=== PATIENT | female | born 1995 | race Caucasian/White ===

== ENCOUNTER 2024-02-16 17:34 | Inpatient (IN) | payer OTHER, SELFPAY ==
[2024-02-16 11:45] VITALS: BP 113/87
--- NOTE | 2024-02-16 12:54 | ED.GENMED ---
History of Present Illness
General
Chief Complaint: Dizziness
Source: patient and family
Exam Limitations: none
Time Seen by Provider: 02/16/24 12:05
Nursing documentation reviewed up to this point in time: agreed with
Travel History
Have you had any contact with someone who has COVID-19?: No
Do you have any symptoms of coronavirus? Fever > 100 degrees, chills, cough, shortness of breath, sore throat, loss of taste or smell, muscle aches, or headache?: No
History of Present Illness
History of Present Illness:
Patient is a 29-year-old female with history of gastroparesis, chronic anemia/iron deficiency anemia spontaneous colon rupture at age 20, ileostomy followed at [place] by GI Dr. Hill presents to the ER for evaluation. Patient has a PICC line to her
left arm and normally gives herself a liter and a half of fluids every other day to prevent dehydration. She reports she had what she thinks is a stomach bug last week and on Friday, 5 days ago she had a fever of 101 and she had projectile
vomiting. She also had a significant high output of stool through her ileostomy. She has not had a fever since Friday and her output has decreased but she complains of feeling very weak and very lightheaded and is nauseous. She has had a mild
headache. Last night she started with some burning with urination and is afraid she has UTI. She does have a history of urinary retention and did have this issue as well yesterday. She has been able to hold down some fluids and soup. She denies
any abdominal pain.
As documented patient has a history of anemia and her last hemoglobin was 10.9 at [place] December 29, 2023. She does get intermittent iron transfusions.
Past History
Past History
ED Past Medical History: Psychiatric (anxietym OCD), Other (Peptic ulcer disease, hemochromatosis, volvulus, psoriasis, IBS, Anemia, Ulcers) and Other
ED Past Surgical History: Other (coloectomy and multiple iliostomy revisions X 5, Bilateral occipital nerve disection)
Social History
Tobacco: Non-smoker
Alcohol: Occasional
Personal: Single
Living: with family
Employment: Employed
Review of Systems
Review of Systems
Allergies reviewed?: Yes
Other source history: family
All Other Systems: ROS reviewed and negative except as documented in HPI and ROS
Constitutional: Reports fatigue and other (fever last week no fever since Friday )
EENT: Reports no symptoms
Respiratory: Reports no symptoms
Cardiac: Reports no symptoms
ABD/GI: Reports nausea and other (Increased output through ileostomy last week this has improved vomiting last week no vomiting since); Denies abdominal pain
: Reports other (Patient had urinary retention last night and some burning)
Musculoskeletal: Reports no symptoms
Skin: Reports no symptoms
Neurological: Reports dizzy ('feels lightheaded' )
Psychiatric: Reports no symptoms
Phy Exam
General Physical Exam
General Presentation: no apparent distress
General age: appears stated age
General Skin: warm and dry
General Habitus: normal
General Mental: alert
General Hydration: dry mucous membranes
Gastrointestinal Exam
Gastrointestinal Exam: non tender, soft and other (+ Ileostomy in place small stool in the bag)
Neurological Exam
Neurological Exam: alert and oriented x3
Musculoskeletal Exam
Musculoskeletal Exam: full ROM
Skin Exam
Skin Exam: normal color and warm/dry
Psychiatric Exam
Psychiatric Exam: normal mood/affect
Course
Orders/Labs/Results
Orders:
Orders
02/16/24 12:56
Cardiac Monitoring- Treatment ONCE
IV Insert/Care/Rem.- Treatment PRN
0.9% Sodium Chloride 1000 ml [Nss] 1,000 ml IV BOLUS
Ondansetron Injectable [Zofran] 4 mg IV NOW STA
Test Result ONCE
02/16/24 13:15
Chest [CR Chest - 2 Views ] Urgent
Comment:
Reason For Exam: left arm piccl line placement
02/16/24 13:19
Complete Blood Count/With Diff Urgent
Comprehensive Metabolic Panel Urgent
HCG, Serum Qualitative Screen Urgent
Lipase Urgent
Urinalysis Reflex To Culture Urgent
Date Specimen was Collected: 02/16/24
Time Specimen was Collected: 13:18
Urine Microscopic Reflex Cult Urgent
Urine Culture Urgent
ALBINA Source: U
Specimen Description:
Obtained by: Random
Date Specimen was Collected: 02/16/24
Time Specimen was Collected: 13:18
02/16/24 Dinner
NPO
Allow oral meds: Yes
Allow clear liquids: Sips of Clears
02/16/24 16:31
Promethazine [Phenergan] 25 mg 0.9% Sodium Chloride 50 ml [Nss] 50 ml IV NOW
02/16/24 16:41
Acetaminophen 1000MG/100Ml [Ofirmev] 1,000 mg in 100 ml IV ONCE
Acetaminophen IV Indication:: ED Narcotic Naive Pt-ONCE
02/16/24 16:43
Lactated Ringers [Lr] 1,000 ml IV BOLUS
02/16/24 16:44
Promethazine [Phenergan] 12.5 mg 0.9% Sodium Chloride 50 ml [Nss] 50 ml IV NOW
02/16/24 16:48
CefTRIAXone [Rocephin] 1,000 mg IV NOW STA
02/16/24 17:14
Admit/Transfer Patient As Directed
Co-Sign Provider:
Level of Care: Inpatient admission
Assign to:: Medical/Surgical
Physician / Group: [email or web address]
Diagnosis: gastroenteritis
Reason for Hospitalization: gastroenteritis
Expected length of stay greater than two midnights?: Yes
ELOS- Estimated Length of Stay in days: 2
I certify the patient meets the requirements for IP care: Yes
02/16/24 17:16
Code Status As Directed
Resuscitation Status: Full Code
02/16/24 17:22
C difficile Antigen & Toxins Urgent
ALBINA Source: Feces/Stool
Specimen Description:
Date Specimen was Collected: 02/17/24
Time Specimen was Collected: 02:50
Norovirus by PCR Urgent
ALBINA Source: Feces/Stool
Specimen Description:
Date Specimen was Collected: 02/17/24
Time Specimen was Collected: 02:50
Stool Culture Urgent
ALBINA Source: Feces/Stool
Specimen Description:
Date Specimen was Collected: 02/17/24
Time Specimen was Collected: 02:50
02/16/24 19:33
0.9% Sodium Chloride 1000 ml [Nss] 1,000 ml IV 100 mls/hr
Promethazine [Phenergan] 12.5 mg 0.9% Sodium Chloride 50 ml [Nss] 50 ml IV Q4HPRN
sumatriptan succinate 6 mg SC DAILYPRN PRN
02/16/24 19:33
Activity As Directed
Activity Level: As Tolerated
Bladder Scan As Directed
Follow Bladder Retention/Intermittent Cath Algorithm?: Yes
PRN if no void in __ hours: 6
Frequency: Per Retention Algorithm
If Bladder Scan Result >: 400
then:: Straight cath
Straight Cath As Directed
Frequency: Per Retention Algorithm
Additional Instructions: straight cath as needed per acute urinary retention algorithm for 24 hrs
Additional Instructions: for bladder scan greater than 400 mL
Vital Signs As Directed
Frequency: Per unit guidelines
DX Deep Vein Thrombosis Video Routine
02/16/24 20:00
Heparin 5,000 units SC Q12
Pantoprazole [Protonix] 40 mg PO BID
02/16/24 20:01
B12 [Vitamin B12] Routine
Ferritin Routine
Folate Routine
Iron Routine
TIBC [Total Iron Binding] Routine
Blood Culture Q30M
ALBINA Source: Blood/Venous
Specimen Description:
02/16/24 20:09
Sumatriptan Succinate [Imitrex] 100 mg PO PRN PRN
02/16/24 21:02
Blood Culture Q30M
ALBINA Source: Blood/Venous
Specimen Description:
02/17/24 07:41
Complete Blood Count/With Diff IN AM
Comprehensive Metabolic Panel IN AM
02/17/24 20:00
CefTRIAXone [Rocephin] 1,000 mg IV Q24H
Abnormal Lab Results
02/16/24
13:19
RBC 3.68 L 10^6/uL
(4.20-5.40)
Hgb 8.6 L g/dL
(12.0-16.0)
Hct 27.2 L %
(37.0-47.0)
MCV 73.9 L fL
(81.0-99.0)
MCH 23.4 L pg
(27.0-31.0)
MCHC 31.6 L g/dL
(33.0-37.0)
RDW 16.2 H %
(11.5-14.5)
MPV 10.9 H fL
(7.4-10.4)
Sodium 131 L mmol/L
(135-145)
Carbon Dioxide 19 L mmol/L
(22-30)
BUN 28 H mg/dl
(7-17)
Creatinine 0.5 L mg/dL
(0.6-1.0)
Urine Nitrite (Reflex) Positive A
(Negative)
Urine Bilirubin 1+ A
(Negative)
Urine WBC (Reflex) 11-15 A /HPF
(0-5)
Urine Bacteria (Reflex) Few A
(Negative)
02/16/24 13:19
02/16/24 13:19
Vital Signs
Initial and Last Documented VS:
Initial Vital Signs
Temp Pulse Resp BP Pulse Ox
98.5 F 100 18 113/87 100
02/16/24 11:45 02/16/24 11:45 02/16/24 11:45 02/16/24 11:45 02/16/24 11:45
Last Documented Vital Signs
Temp Pulse Resp BP Pulse Ox
97.8 F 81 16 109/76 96
02/17/24 23:30 02/17/24 23:30 02/17/24 23:30 02/17/24 23:30 02/17/24 23:30
MDM/Problems Addressed
Differential Diagnosis Includes:
Not limited to dehydration anemia UTI, recent viral syndrome
MDM/Problems Addressed:
Patient is a 29-year-old female with significant past medical history as documented with ileostomy presents with complaints of feeling very weak lightheaded dizzy. Patient had what she believes was a stomach bug last week and had vomiting and has
had a lot of output through her ileostomy. She is followed at [place]. Patient appears dehydrated on exam denies any recent fever chills. She was hydrated here given nausea medicine and fluids but continues to feel lightheaded dizzy nonvertiginous.
Patient is afebrile with a normal white count of 6.2 hemoglobin low at 8.6 which is low from her last blood test at [place] as documented. She does have history of anemia/iron deficiency anemia patient has normal kidney function. Abdomen soft and
nontender. Despite fluids antiemetics patient continues to feel lightheaded patient also has UTI symptoms and UA with positive nitrates 11�15 white blood cells will treat for UTI and admit. Case discussed admitting hospitalist
Chronic conditions affecting care:
chronic ileostomy
*Radiology
Radiology exam reviewed: radiology read reviewed (chest to confirm PICC Line in place )
*Pulse Oximetry
Patient hypoxic: no
*Critical Care Note
Total Time (30-74mins, 75-104mins- exclusive of procedures): Not Applicable
ED Attending Note
-
Portions of this chart may have been created with voice recognition software.� Occasional wrong word or��sound alike� substitutions may have occurred due to the inherent limitations of voice recognition software.
Discharge Plan
Departure
Patient Disposition: Admit
Date of Disposition: 02/16/24
Time of Disposition: 16:49
Admit to: Med/Surg
Admit to doctor: hospitalist
Presentation/result/management discussed w/ accepting MD/DO: Hospitalist
Patient with high blood pressure during this ER visit?: No
Covid-19: Not Applicable
Discharge Problem:
Lightheadedness, Anemia, UTI (urinary tract infection), Acute dehydration
Interventions
Interventions:
*Risk Screen - Suicide Last Done: 02/16/24 19:40
*General Assessment Last Done: 02/16/24 11:45
*Neglect/Abuse Screening Last Done: 02/16/24 11:45
ED- Fall Risk Assessment Last Done: 02/16/24 12:56
*ED COVID-19 Vaccine History Last Done: 02/16/24 11:45
*Nursing Disposition Last Done: 02/16/24 19:30
ED- Neurological Assessment Last Done: 02/16/24 12:56
ED Swallowing Screen Last Done: 02/16/24 12:56
Discharge Date and Time
Discharge Date/Time: 02/16/24 19:31
[2024-02-16 13:37] LABS: % Basophils 0.3 % (0-2); % Eosinophils 1.6 % (0-6); % Immature Granulocytes 0.3 % (0-0.5); % Lymphocytes 28.2 % (20.5-51.1); % Monocytes 7.3 % (1.7-9.3); % Neutrophils 62.3 % (42.2-75.2); Absolute Eosinophils 0.1 10^3/uL (0-0.7); Absolute Lymphocytes 1.7 10^3/uL (1.2-3.4); Absolute Monocytes 0.5 10^3/uL (0.1-0.6); Absolute Neutrophils 3.8 10^3/uL (1.4-6.5); Hematocrit 27.2 % (37.0-47.0); Hemoglobin 8.6 g/dL (12.0-16.0); Mean Corp Hgb Conc. 31.6 g/dL (33.0-37.0); Mean Corpuscular Hgb 23.4 pg (27.0-31.0); Mean Corpuscular Volume 73.9 fL (81.0-99.0); Mean Platelet Volume 10.9 fL (7.4-10.4); Nucleated Red Blood Cells % 0 %; Platelet Count 217 10^3/uL (130-400); Red Blood Cell Count 3.68 10^6/uL (4.20-5.40); Red Cell Dist. Width 16.2 % (11.5-14.5); White Blood Cell Count 6.2 10^3/uL (4.8-10.8)
[2024-02-16 13:40] LABS: Urine Albumin Negative (Neg - Trace); Urine Bilirubin 1+ (Negative); Urine Character Clear (Clear); Urine Color Yellow; Urine Glucose Negative (Negative); Urine Ketone Negative (Negative); Urine Leukocyte Negative (Negative); Urine Nitrite Positive (Negative); Urine Occult Blood Negative (Negative); Urine Urobilinogen Negative (Neg - 1+)
[2024-02-16 13:49] LABS: Urine Bacteria Few (Negative); Urine Red Blood Cell 0-2 /HPF (0-2)
[2024-02-16 13:51] LABS: HCG, Serum Qualitative Screen Negative
[2024-02-16 13:56] VITALS: BP 103/70
[2024-02-16 13:58] LABS: ALT (SGPT) 27 U/L (0-35); AST (SGOT) 32 U/L (14-36); Albumin 4.1 g/dl (3.5-5.0); Alkaline Phosphatase 71 U/L (38-126); Blood Urea Nitrogen 28 mg/dl (7-17); Calcium 9.1 mg/dl (8.4-10.2); Carbon Dioxide 19 mmol/L (22-30); Chloride 106 mmol/L (98-107); Glucose 90 mg/dl (70-99); Potassium 4.5 mmol/L (3.5-5.1); Sodium 131 mmol/L (135-145); Total Bilirubin 0.2 mg/dl (0.2-1.3); Total Protein 6.6 g/dl (6.3-8.2); eGFR > 60.00
[2024-02-16] MEDS: ZOFRAN 4 MG IV (14:35)
[2024-02-16] MEDS: NSS 1000 IV ×2 (14:35→22:30)
[2024-02-16 14:55] LABS: Lipase 147 U/L (23-300)
--- NOTE | 2024-02-16 17:26 | HPS.HSE ---
Family Physician
-
Family Physician: * NONE
Chief Complaint
-
dizziness
History of Present Illness
29-year-old female with past medical history of spontaneous colon rupture at age 20 status post ileostomy, multiple ileostomy revisions,, high output ileostomy, gastroparesis, gastritis, chronic anemia/iron deficiency anemia, migraines status post
occipital nerve resection, psoriatic arthritis, chronic back pain, presenting with dizziness.
Patient thinks that she had a stomach bug last week 5 days ago she had fever of 101 and projectile vomiting. She also had a high output stool through the ileostomy that is watery. She states that since then she has not had fever and a few days ago
her output is decreased but she feels very weak, lightheaded and nauseous. She has mild headache. She denies eating any outside food or sick contacts.
Since last night she has had burning with urination as well as urinary retention. Patient denies abdominal pain.
Patient has a left upper extremity PICC line and normally gives herself a liter and a half of IV fluids every other day to prevent dehydration. She has a history of anemia and her last hemoglobin was 10.9 at [place] on December 29, 2023. She does
receive intermittent iron transfusions which she last received a year ago. She denies any blood in the stool or black stool. She last had an EGD 2 years ago which did not show any evidence of bleeding.
Denies smoking, alcohol, marijuana or any drugs.
Medical History
Past Medical History
Past Medical History: Reports Other (spontaneous colon rupture at age 20 status post ileostomy, multiple ileostomy revisions,, high output ileostomy, gastroparesis, gastritis, chronic anemia/iron deficiency anemia, migraines status post occipital
nerve resection, psoriatic arthritis, chronic back pain)
Past Surgical History: Reports Other (ileostomy, multiple ileostomy revisions, occipital nerve resection)
Social History
Tobacco: Non-smoker
Alcohol: None
Drug: None
Family History
Family History: Not pertinent
Allergies / Home Medications
Allergies reflects when Allergies were last updated in [email or web address].
Home Medications with original date entered in [email or web address]
Allergy/Medication List:
Allergies
Allergy/AdvReac Type Severity Reaction Status Date / Time
latex Allergy Itching Verified 02/16/24 11:48
prednisone Allergy Unknown Verified 02/16/24 11:48
Home Medications
lansoprazole 30 mg capsule,delayed release 30 mg PO BID 12/29/22
promethazine 12.5 mg tablet 25 mg PO Q6H PRN nausea 12/29/22
sumatriptan succinate 100 mg tablet (Imitrex) 250 mg PO PRN PRN migraines 12/29/22
tramadol 50 mg tablet 50 mg PO Q6H PRN breakthrough pain 12/29/22
Heparin 5 ml IV HS 02/16/24
folic acid 1 ml PO BID 02/16/24
rimegepant 75 mg disintegrating tablet (Nurtec ODT) 75 mg PO DAILY PRN intense migraine 02/16/24
sodium chloride 0.9 % 1.5 l IV Q48H 02/16/24
sodium chloride 0.9 % (flush) 10 ml IV HS 02/16/24
sumatriptan succinate 6 mg/0.5 mL subcutaneous pen injector 6 mg SC DAILY PRN intense migraine 02/16/24
Review of Systems
-
History Source: Patient
A 12 point ROS was completed and negative except as noted: Yes
Constitutional: Reports No Symptoms
EENT: Reports No Symptoms
Respiratory: Reports No Symptoms
Cardiac: Reports No Symptoms
Abdomen/GI: Reports See HPI
: Reports No Symptoms
Musculoskeletal: Reports No Symptoms
Skin: Reports No Symptoms
Neurological: Reports No Symptoms
Endocrine: Reports No Symptoms
Hematologic/Lymphatic: Reports No Symptoms
Psych: Reports No Symptoms
Physical Exam
Vital Signs
Vital Signs
Temp Pulse Resp BP Pulse Ox
98.5 F 96 17 103/70 98
02/16/24 11:45 02/16/24 13:56 02/16/24 13:56 02/16/24 13:56 02/16/24 13:56
Physical Exam
General: Well Developed, Well Nourished and No Apparent Distress
HEENT: NormoCephalic, Moist mucous membranes and Atraumatic
Respiratory: Clear
Cardiac: S1/S2 and Regular Rhythm; No Murmur or Rub
GI: Soft, Non Tender, Non Distended and Normal Bowel Sounds; No Organomegaly
Rectal: Deferred by Provider
Musculoskeletal: No Clubbing, No Cyanosis and No Edema
Skin: No Rash
Neuro: Nonfocal/grossly intact
Laboratory Results
-
02/16/24 13:19
02/16/24 13:19
Laboratory Results
Total Bilirubin 0.2 mg/dl (0.2-1.3) 02/16/24 13:19
AST 32 U/L (14-36) 02/16/24 13:19
ALT 27 U/L (0-35) 02/16/24 13:19
Alkaline Phosphatase 71 U/L (38-126) 02/16/24 13:19
Lipase 147 U/L (23-300) 02/16/24 13:19
Data Reviewed
-
Lab Data: Labs Reviewed by me
Old Records: Reviewed
Impression/Plan
-
IMPRESSION:
PLAN:
# Urinary tract infection
# Possible urinary retention
-UA shows 11-15 WBC, positive nitrates
-IV fluids
-Check urine culture
-Check blood cultures
-Ceftriaxone
-Bladder scan protocol
# Likely viral gastroenteritis
# History of high output ileostomy
-NPO
-Check norovirus, stool culture, C. difficile
# History of spontaneous colon rupture status post ileostomy
# History of gastroparesis
-IV promethazine PRN
History of gastritis
-Continue lansoprazole
# Acute on chronic microcytic anemia likely due to iron malabsorption
-Hemoglobin 8.6 from 10.9 last month
-Check iron studies, B12 and folate
History of folate deficiency
Migraine history status post vestibular nerve resection
-Continue sumatriptan as needed
-Continue Nurtec
Psoriatic arthritis
Chronic back pain
-Switch tramadol to IV Dilaudid
Full code
DVT prophylaxis�heparin
NPO
[2024-02-16] MEDS: PHENERGAN 50.5 MG IV (17:49)
[2024-02-16 18:35] VITALS: BP 99/65
[2024-02-16] MEDS: ROCEPHIN 1000 MG IV (19:12)
[2024-02-16] MEDS: LR 1000 IV (19:13)
[2024-02-16] MEDS: OFIRMEV 100 IV (19:13)
[2024-02-16 20:15] VITALS: BP 106/55
--- NOTE | 2024-02-16 20:15 | PTCARENOTE ---
Patient arrived from ED via stretcher, ambulated from stretcher to bed independently. Patient is awake, alert and oriented. Ileostomy present, patient states she has own supplies to use. Awaiting stool sample to send for testing -- patient is aware
and will obtain sample when able. Call mackay within reach, will ring for assistance if needed. Will monitor.
[2024-02-16 20:22] LABS: Iron 44 ug/dl (37-170)
[2024-02-16 20:31] LABS: Percent Saturation 10 % (20-50); Total Iron Binding Capacity 433 ug/dl (265-497)
--- NOTE | 2024-02-16 20:45 | PTCARENOTE ---
Pt's suicide risk resulted as Mild Risk.Pt denies suicidal/homicidal ideations at present.Pt stated ,I attempted to hurt my self 6 months ago and had 2 hospitalizations but not having any of those feelings recently or at present.@2030; Instructed
VASQUEZ Sebastian via TT and car supervisor Deborah via phone call,on above note.Pt is oriented x3,pleasant and is cooperative with her nursing care.Pt is takes care of her own ileostomy and has her own supplies.
[2024-02-16 20:59] LABS: Ferritin 6.2 ng/ml (6.24-137)
[2024-02-16 21:30] LABS: Folate 2.3 ng/ml (2.76-20); Vitamin B12 848 pg/ml (239-931)
[2024-02-16 22:46] VITALS: BP 107/53
[2024-02-16] MEDS: HEPARIN 5000 UNITS SC (23:04)
[2024-02-16] MEDS: PROTONIX 40 MG PO (23:04)
[2024-02-17] VITALS (8 sets, daily range): BP systolic 95–109; BP diastolic 53–76
--- NOTE | 2024-02-17 07:41 | W.PN.HOSP.TC ---
Today's Communication/Plan
-
Will try and place on diet today
Continue IV hydration awaiting chemistries today
IV iron infusion
IV folate
Recheck labs in a.m. if tolerating diet and stable chemistries okay for discharge
Assessment / Plan
Assessment / Plan
29-year-old female with past medical history of spontaneous colon rupture at age 20 status post ileostomy, multiple ileostomy revisions,, high output ileostomy, gastroparesis, gastritis, chronic anemia/iron deficiency anemia, migraines status post
occipital nerve resection, psoriatic arthritis, chronic back pain, presenting with dizziness.
Patient thinks that she had a stomach bug last week 5 days ago she had fever of 101 and projectile vomiting. She also had a high output stool through the ileostomy that is watery. She states that since then she has not had fever and a few days ago
her output is decreased but she feels very weak, lightheaded and nauseous. She has mild headache. She denies eating any outside food or sick contacts.
Since last night she has had burning with urination as well as urinary retention. Patient denies abdominal pain.
Patient has a left upper extremity PICC line and normally gives herself a liter and a half of IV fluids every other day to prevent dehydration. She has a history of anemia and her last hemoglobin was 10.9 at [place] on December 29, 2023. She does
receive intermittent iron transfusions which she last received a year ago. She denies any blood in the stool or black stool. She last had an EGD 2 years ago which did not show any evidence of bleeding.
Denies smoking, alcohol, marijuana or any drugs.
# Urinary tract infection
# Possible urinary retention
-UA shows 11-15 WBC, positive nitrates
-IV fluids
-Check urine culture
-Check blood cultures
-Ceftriaxone
-Bladder scan protocol
# Likely viral gastroenteritis
# History of high output ileostomy
-NPO>> okay for low-residue diet today/notes no obstructive symptoms
-Check norovirus, stool culture, C. difficile
# History of spontaneous colon rupture status post ileostomy
# History of gastroparesis
-IV promethazine PRN
History of gastritis
-Continue lansoprazole
# Acute on chronic microcytic anemia likely due to iron malabsorption
-Hemoglobin 8.6 from 10.9 last month
-Low iron saturation and ferritin/low folate B12 within normal limits
-IV iron infusion while here/IV folate
History of folate deficiency
Migraine history status post vestibular nerve resection
-Continue sumatriptan as needed
-Continue Nurtec
Psoriatic arthritis
Chronic back pain
-Switch tramadol to IV Dilaudid
Full code
DVT prophylaxis�heparin
Anticipated Discharge: Within 24 hours
Subjective/Interval History
-
Date of Service: February 17, 2024
Feeling somewhat better after IV fluids overnight and wants to eat for some reason was made n.p.o. no nausea or vomiting and adequate ileostomy output
Objective Data
-
Labs:
Laboratory Results
02/17/24
06:00
WBC Pending
Hgb Pending
Hct Pending
Plt Count Pending
Sodium Pending
Potassium Pending
Chloride Pending
Carbon Dioxide Pending
BUN Pending
Creatinine Pending
Glucose Pending
Calcium Pending
Total Bilirubin Pending
AST Pending
ALT Pending
Alkaline Phosphatase Pending
Vital Signs:
Vital Signs
Temp Pulse Resp BP Pulse Ox
98.9 F 67 16 107/53 100
02/16/24 22:46 02/16/24 22:46 02/16/24 22:46 02/16/24 22:46 02/17/24 05:16
I&O
02/16/24 02/17/24 02/18/24
06:59 06:59 06:59
Intake Total 2379 / 2379
Balance 2379
Review of Systems
-
History Source: Patient
Constitutional: Reports Weakness; Denies Fever
Respiratory: Reports No Symptoms
Cardiac: Reports No Symptoms
Abdomen/GI: Reports Diarrhea; Denies Abdominal Pain, Nausea or Vomiting
Physical Exam
-
General: Well Developed (Appears pale)
HEENT: Normocephalic
Respiratory: Clear to Auscultation
Cardiac: Regular Rhythm
GI: Soft, Nontender and Ostomy (Ileostomy intact with good output)
Rectal: Brown
Musculoskeletal: No Clubbing
Psych: Calm
Data Reviewed
-
Total Time Spent with Patient (in minutes): 56
Labs: Labs Reviewed by me (Urinalysis was not that impressive for bacteria although did show positive nitrates/today's chemistries pending/iron deficiency noted along with folate deficiency)
[2024-02-17] MEDS: HEPARIN 5000 UNITS SC (07:46)
[2024-02-17] MEDS: PROTONIX 40 MG PO ×2 (07:46→20:53)
[2024-02-17 08:02] LABS: % Basophils 0.3 % (0-2); % Eosinophils 2.7 % (0-6); % Immature Granulocytes 0.6 % (0-0.5); % Lymphocytes 45.5 % (20.5-51.1); % Monocytes 7.5 % (1.7-9.3); % Neutrophils 43.4 % (42.2-75.2); Absolute Eosinophils 0.1 10^3/uL (0-0.7); Absolute Lymphocytes 1.5 10^3/uL (1.2-3.4); Absolute Monocytes 0.3 10^3/uL (0.1-0.6); Absolute Neutrophils 1.4 10^3/uL (1.4-6.5); Mean Corp Hgb Conc. 30.7 g/dL (33.0-37.0); Mean Corpuscular Volume 75.1 fL (81.0-99.0); Nucleated Red Blood Cells % 0 %; Platelet Count 145 10^3/uL (130-400); Red Blood Cell Count 2.65 10^6/uL (4.20-5.40); Red Cell Dist. Width 16.1 % (11.5-14.5); White Blood Cell Count 3.3 10^3/uL (4.8-10.8)
[2024-02-17 08:13] LABS: Hematocrit 19.9 % (37.0-47.0); Hemoglobin 6.1 g/dL (12.0-16.0)
--- NOTE | 2024-02-17 08:20 | W.PN.UPDATE ---
Update Note
Progress Note Update
Hemoglobin depressed to 6.1 no active bleeding seen and partly dilutional but also in relation to significant iron deficiency anemia folate deficiency will transfuse 2 units of packed red blood cells today continue iron infusions as ordered consent
signed by patient
[2024-02-17] MEDS: NSS 1000 IV (08:25)
[2024-02-17 08:32] LABS: ALT (SGPT) 17 U/L (0-35); AST (SGOT) 23 U/L (14-36); Albumin 2.5 g/dl (3.5-5.0); Alkaline Phosphatase 49 U/L (38-126); Blood Urea Nitrogen 17 mg/dl (7-17); Calcium 7.8 mg/dl (8.4-10.2); Carbon Dioxide 23 mmol/L (22-30); Chloride 109 mmol/L (98-107); Estimated Creatinine Clearance 100 ml/min; Glucose 82 mg/dl (70-99); Potassium 3.7 mmol/L (3.5-5.1); Sodium 134 mmol/L (135-145); Total Bilirubin 0.3 mg/dl (0.2-1.3); Total Protein 4.7 g/dl (6.3-8.2); eGFR > 60.00
[2024-02-17] MEDS: FOLVITE 50.2000000000000028 MG IV (09:10)
[2024-02-17] MEDS: NSS IV (15:17)
[2024-02-17] MEDS: FERRLECIT 110 MG IV (15:46)
--- NOTE | 2024-02-17 16:27 | CM ---
Spoke with patient to obtain information for assessment. Patient stated that she lives in an apartment in [place] by herself. She is independent with her ADLs, personal care, dressing, bathing and ambulates without device.
Patient can cook, clean, do laundry and captain assistant. She does not drive however she takes public transportation, Uber or Lyft to work, to the store and to her providers office.
Patient denied any DME with exception of her PICC. She uses [facility] and does have a weekly VN change her dressing however patient does the rest of the care including the infusions.
Patient has never been to a SNF. She was asked about her SI and denies any at this time but did admit to some history of SI months ago. She stated that she is feeling better now.
Patient feels that she will be able to return home at discharge and her mother who lives in [place] will transport her.
Plan: Case management will continue to follow and assist with discharge planning. Home when stable. Patient confirmed that her VN knows she is inpatient.
[2024-02-17] MEDS: HEPARIN SC ×2 (20:53→21:02)
[2024-02-17] MEDS: STERILE WATER FOR INJECTION 10 ML IV (20:53)
[2024-02-17] MEDS: ROCEPHIN 1000 MG IV (20:53)
[2024-02-17] MEDS: IMITREX 100 MG PO (21:07)
[2024-02-17] MEDS: PHENERGAN 50.5 MG IV (21:25)
[2024-02-18] MEDS: NSS 1000 IV (01:27)
[2024-02-18] MEDS: IMITREX 6 MG SC (01:46)
[2024-02-18 04:39] LABS: Hematocrit 26.5 % (37.0-47.0); Mean Corp Hgb Conc. 32.5 g/dL (33.0-37.0); Mean Corpuscular Hgb 25.7 pg (27.0-31.0); Mean Corpuscular Volume 79.1 fL (81.0-99.0); Mean Platelet Volume 11.5 fL (7.4-10.4); Platelet Count 157 10^3/uL (130-400); Red Blood Cell Count 3.35 10^6/uL (4.20-5.40); Red Cell Dist. Width 17.1 % (11.5-14.5); White Blood Cell Count 6.2 10^3/uL (4.8-10.8)
[2024-02-18 04:50] LABS: Hemoglobin 8.6 g/dL (12.0-16.0)
[2024-02-18 05:07] LABS: Blood Urea Nitrogen 12 mg/dl (7-17); Calcium 7.9 mg/dl (8.4-10.2); Carbon Dioxide 25 mmol/L (22-30); Chloride 107 mmol/L (98-107); Estimated Creatinine Clearance 100 ml/min; Glucose 101 mg/dl (70-99); Potassium 3.4 mmol/L (3.5-5.1); Sodium 136 mmol/L (135-145); eGFR > 60.00
[2024-02-18] MEDS: IMITREX 100 MG PO (06:30)
[2024-02-18] MEDS: FOLVITE 50.2000000000000028 MG IV (07:24)
[2024-02-18] MEDS: HEPARIN SC (07:24)
[2024-02-18] MEDS: PROTONIX 40 MG PO (07:25)
[2024-02-18 07:30] VITALS: BP 101/56
--- NOTE | 2024-02-18 07:57 | W.DS.TRANS ---
DC Summary - Yarn Examiner
-
Discharge Instructions:
Discharge Diagnosis/Procedures Acute enteritis from norovirus
Dehydration
Hypokalemia
Iron deficiency anemia
Folate deficiency
Diet As tolerated
Activity No restrictions
Driving Restrictions As prior to admission
Instructions:
Stand-Alone Forms:
Changes to Home Medications: No
Discharge Medications:
DC Medications w/original date entered in [employer]
lansoprazole 30 mg capsule,delayed release 30 mg PO BID Gastrointestinal Issue 12/29/22
promethazine 12.5 mg tablet 25 mg PO Q6H PRN nausea 12/29/22
sumatriptan succinate 100 mg tablet (Imitrex) 250 mg PO PRN PRN migraines 12/29/22
tramadol 50 mg tablet 50 mg PO Q6H PRN breakthrough pain 12/29/22
Heparin 5 ml IV HS Blood Clot Prevention/Tx 02/16/24
folic acid 1 ml PO BID Supplement 02/16/24
rimegepant 75 mg disintegrating tablet (Nurtec ODT) 75 mg PO DAILY PRN intense migraine 02/16/24
sodium chloride 0.9 % 1.5 l IV Q48H hydration 02/16/24
sodium chloride 0.9 % (flush) 10 ml IV HS iv online community manager 02/16/24
sumatriptan succinate 6 mg/0.5 mL subcutaneous pen injector 6 mg SC DAILY PRN intense migraine 02/16/24
Home Medication Changes
Pending Results: No
Total time spent discharging patient (in min): 40
--- NOTE | 2024-02-18 11:09 | W.DCSUMMARY ---
Discharge Summary
Discharge Data
Date of Admission: 02/16/24
Date of Discharge: 02/18/24
-
Pending Results: No
Hospital Course
29-year-old female ileostomy with multiple ileostomy revisions. High output ileostomy history with gastroparesis gastritis to the point that she self administers saline infusions every other day to replenish ileostomy losses also with a history of
chronic anemia iron deficiency presented with dizziness and was found to have significant prerenal low volume state and orthostasis and admitted. She stated that she had had a stomach bug for 5 days with a febrile course and projectile vomiting and
high output from her ileostomy that became watery at time of presentation she was no longer febrile but met chemical criteria for dehydration. She has a history of anemia and initial hemoglobin was 8-1/2 dropped to 6.1 the following day after
admission prompting need for 2 units of packed red blood cells for replenishment she was placed on iron supplementation via the parenteral route. There is no description or documentation of any signs of any GI blood loss. Stools were sent for
culture and eventually proved positive for norovirus obtaining that result prior to her discharge she has had significant improvement with her orthostatic symptoms after blood transfusion and saline with IV replacement replenishment and electrolyte
replenishment. She had been empirically placed on antibiotic coverage with the presumption of possible underlying UTI but urine cultures proved negative for growth these were discontinued. At time of discharge her hemoglobin was 8 .6/acute kidney
injury is resolved with BUN back to baseline from 28-12 at time of discharge. She was instructed on precautions to take with proper hand hygiene in relation to her recent diagnosis of norovirus and that period of infectivity could last as much is 2
weeks however more than likely given her symptom relief she will be given a excuse to return to work early next week
Discharge Plan
-
Patient Disposition: Home (Routine Discharge)
Discharge Diagnosis/Procedures: Acute enteritis from norovirus
Dehydration
Hypokalemia
Iron deficiency anemia
Folate deficiency
Diet: As tolerated
Activity: No restrictions
Driving Restrictions: As prior to admission
Activity Restrictions/Additional Instructions:
Use strict hand hygiene especially after handling or use of ileostomy for the next 2 weeks/as long as your symptoms are improved should be no further issues with infectivity otherwise
Referrals:
NONE,* [Family Provider] - in two weeks
Prescriptions:
Continued
sumatriptan succinate [Imitrex] 100 mg Tablet
250 mg PO PRN PRN (Reason: migraines)
promethazine 12.5 mg Tablet
25 mg PO Q6H PRN (Reason: nausea)
tramadol 50 mg Tablet
50 mg PO Q6H PRN (Reason: breakthrough pain)
Patient Comments:
02/16/2024: last filled 01/02/24, 60 tabs for 30 days from [facility]
lansoprazole 30 mg Capsule,Delayed Release(Dr/Ec)
30 mg PO BID
sumatriptan succinate 6 mg/0.5 mL pen injector
6 mg SC DAILY PRN (Reason: intense migraine)
sodium chloride 0.9 % (flush) Syringe
10 ml IV HS
Patient Comments:
02/16/2024: for PICC care
Nurtec ODT 75 mg tablet,disintegrating
75 mg PO DAILY PRN (Reason: intense migraine)
Heparin
5 ml IV HS
Patient Comments:
02/16/2024: for PICC care
folic acid solution
1 ml PO BID
sodium chloride 0.9 %
1.5 l IV Q48H
Discharge Orders:
Discharge Patient (As Directed); Ordered 02/18/24
Ordered By: De Lennon
Discharge Date and Time
Print Language: MACEDONIAN
== END 2024-02-18 12:13 | disposition home or self-care (01) | DRG 392 ==
LOC: 3 WEST ACU 17:34
PROVIDERS: Nurse Practitioner; ADMITTING PHYSICIAN Hospitalist; ATTENDING PHYSICIAN Internal Medicine; EMERGENCY PHYSICIAN Emergency Medicine
PROC: 30233N1 Transfusion of Nonautologous Red Blood Cells into Peripheral Vein, Percutaneous Approach (ICD-10-PCS; 2024-02-17)
DX: A08.11 Acute gastroenteropathy due to Norwalk agent (principal); N17.9 Acute kidney failure, unspecified; K90.9 Intestinal malabsorption, unspecified; E53.8 Deficiency of other specified B group vitamins; D50.9 Iron deficiency anemia, unspecified; L40.50 Arthropathic psoriasis, unspecified; G89.29 Other chronic pain; M54.9 Dorsalgia, unspecified; K31.84 Gastroparesis; R33.9 Retention of urine, unspecified; K58.9 Irritable bowel syndrome, unspecified; E83.119 Hemochromatosis, unspecified; E86.0 Dehydration; I95.1 Orthostatic hypotension; E87.6 Hypokalemia; G43.909 Migraine, unspecified, not intractable, without status migrainosus; K29.70 Gastritis, unspecified, without bleeding; F42.9 Obsessive-compulsive disorder, unspecified; Z79.899 Other long term (current) drug therapy; Z87.11 Personal history of peptic ulcer disease; Z93.2 Ileostomy status
CPT/HCPCS: 71046; 80048; 80053; 81003; 81015; 82607; 82728; 82746; 83540; 83550; 83690; 84703; 85025; 85027; 86850; 86900; 86901; 86920; 87040; 87045; 87046; 87086; 87324; 87427; 87449; 87798; 96361; 96374; 99285; J2916; P9016

== ENCOUNTER 2025-01-05 23:18 | Inpatient (IN) | payer OTHER, SELFPAY ==
[2025-01-05 18:42] VITALS: BP 129/77
--- NOTE | 2025-01-05 20:10 | ED.GENMED ---
History of Present Illness
<Lisa Luciano PA-C - Last Filed: 01/06/25 00:51>
General
Chief Complaint: Skin Problem
Source: patient and family
Exam Limitations: none
Time Seen by Provider: 01/05/25 19:47
History of Present Illness
History of Present Illness:
29yoF with a history of short gut syndrome and high output ileostomy with chronic PICC line for home hydration presenting with her mother for evaluation of left arm pain x 2 days. Patient reports having some skin changes around her PICC line last
month as well as low-grade temperatures around 99. She had 2 separate rounds of blood cultures, last set was obtained 6 days ago, and both came back negative. Her skin changes have since resolved. She developed pain in her left upper arm which
feels like it is deep in the muscle which prompted her ED visit. She denies any chest pain, shortness of breath, syncope. Her current PICC line was placed in October of this year.
Past History
<Lisa Luciano PA-C - Last Filed: 01/06/25 00:51>
Past History
ED Past Medical History: Psychiatric (anxietym OCD), Other (Peptic ulcer disease, hemochromatosis, volvulus, psoriasis, IBS, Anemia, Ulcers) and Other
ED Past Surgical History: Other (coloectomy and multiple iliostomy revisions X 5, Bilateral occipital nerve disection)
Social History
Tobacco: Non-smoker
Alcohol: Occasional
Personal: Single
Living: with family
Employment: Employed
Phy Exam
<Lisa Luciano PA-C - Last Filed: 01/06/25 00:51>
General Physical Exam
General Presentation: well appearing and no apparent distress
General age: appears stated age
General Skin: warm and dry
General Habitus: normal
General Mental: alert
ENT Exam
ENT Exam: normocephalic
Pulmonary Exam
Pulmonary Exam: no respiratory distress
Neurological Exam
Neurological Exam: alert
[place] Coma Scale
Eye Opening: Spontaneous
Verbal Response: Oriented
Motor Response: Obeys Commands
GCS Total Score: 15
Musculoskeletal Exam
Musculoskeletal Exam: other (LUE PICC line in place. No skin changes to arm or pitting edema. Compartments soft. 2+ radial pulse. )
Skin Exam
Skin Exam: normal color and warm/dry
Psychiatric Exam
Psychiatric Exam: normal mood/affect
Course
<Lisa Luciano PA-C - Last Filed: 01/06/25 00:51>
Orders/Labs/Results
Orders:
Orders
01/05/25 18:50
CR Chest - 2 Views Urgent
Comment:
Reason For Exam: verify PICC placement
US Arms, Left [US Periph Venous UPPER Ext LT] Urgent
Comment:
Reason For Exam: left PICC line and arm pain
01/05/25 20:09
Test Result ONCE
01/05/25 20:32
Complete Blood Count/With Diff Urgent
Comprehensive Metabolic Panel Urgent
HCG, Serum Qualitative Screen Urgent
01/05/25 22:36
Heparin 4,100 units IV NOW STA
Nursing to Place Non Medication Order As Directed
Physician Order: PTT 6 hours after initial start of Heparin infusion
01/05/25 22:45
Admit/Transfer Patient As Directed
Co-Sign Provider:
Level of Care: Inpatient admission
Assign to:: Medical/Surgical
Physician / Group: dallas cancino
Diagnosis: DVT
Reason for Hospitalization: DVT
Expected length of stay greater than two midnights?: Yes
ELOS- Estimated Length of Stay in days: 3
I certify the patient meets the requirements for IP care: Yes
Code Status As Directed
Resuscitation Status: Full Code
Heparin 31573 Units/250 ml 25,000 units in 250 ml IV PER PROTOCOL
Weight to be used for heparin protocol in kilograms (kg):: 51.1
Protocol:: DVT/PE
PTT Goal Range to be used:: PTT 73 to 111 seconds
Order type:: Initial
INITIAL Infusion Dose (UNITS/KG/hr) & then follow protocol:: 18 units/kg/hr
Infusion Dose in UNITS/hr & then follow protocol (UNITS/hr):: 900
INFUSION RATE in mL/hr & then follow protocol (mL/hr):: 9
For DVT/PE algorithm, re-bolus for low PTT?: Yes
PTT less than or equal to 64 seconds:: Re-bolus 80 units/kg (max 10,000units). Increase by 200 units/hr
(+ 2mL/hr)
PTT 64.1 to 72.9 seconds:: Re-bolus 40 units/kg (max 5,000 units). Increase by 100 units/hr
(+ 1mL/hr)
PTT 73 to 111 seconds:: Target Range. No change in rate.
PTT 111.1 to 130.9 seconds:: Decrease rate by 100 units/hr (- 1 mL/hr)
PTT 131 to 199.9 seconds:: HOLD for 1 hr. Then decrease by 200 units/hr (- 2mL/hr)
PTT greater than or equal to 200 seconds:: HOLD for 2 hrs & Notify Provider. Then decrease by 200 units/hr
(- 2mL/hr)
Lab follow-up:: Each change, PTT q6h until 2 consecutive are therapeutic. Then
PTT daily.
PRN Pain Medication Management As Directed
May give lesser potent ordered pain med per pt: Yes
preference::
Protocol:: Medication orders for pain may be administered in a
manner that supports deferring to patient preference
when the pt is:
- Requesting an ordered lesser potent pain medication.
Least to most potent pain medications are defined
as: acetaminophen < NSAID < tramadol < opioids
(morphine, oxycodone, hydromorphone).
- Requesting a lesser dose of the same medication IF
ORDERED.
- Requesting a less intrusive route of administration
if both routes are prescribed by the provider (PO <
IV).
01/05/25 22:48
PTT Urgent
Comment: Obtain baseline before beginning heparin infusion if not already collected
01/05/25 23:00
HEMATOLOGY CONSULT Routine
Consulting Provider: Gus Yost
Was physician already notified: No
Reason for consult: DVT
01/05/25 23:01
Consult Notification Routine
Specialty to Notify: Hematology
01/05/25 23:03
HYDROmorphone [Dilaudid] 0.25 mg IV Q4HPRN PRN
01/05/25 23:12
Heparin 4,100 units IV Q6HPRN PRN
01/05/25 23:13
Heparin 2,000 units IV Q6HPRN PRN
01/06/25 00:20
Acetaminophen [Tylenol] 650 mg PO Q4HPRN PRN
Bisacodyl [Dulcolax] 10 mg RECTAL [id number] PRN
Docusate W/Senna [Senokot-S] 1 tablet PO BIDPRN PRN
Polyethylene Glycol Powder [Miralax] 17 grams PO DAILYPRN PRN
Simethicone [Mylicon] 80 mg PO DAILYPRN PRN
Tramadol HCl [Ultram] 50 mg PO Q6HPRN PRN
rimegepant [Nurtec ODT] 75 mg PO DAILYPRN PRN
01/06/25 00:20
Case Management Consult ONCE
Case Management Consult: Other
Heparin Protocol- PTT Orders As Directed
PTT per Heparin protocol: -Obtain CBC and baseline PTT - if not already collected.
-Obtain PTT 6 hours from start of infusion. Then, every 6 hours until 2 consecutive
PTT's are therapeutic. Then, PTT Daily.
-With each rate change, obtain PTT every 6 hours until 2 consecutive PTT's are
therapeutic. Then, PTT Daily.
Activity As Directed
Activity Level: As Tolerated
Notify MD As Directed
Notify physician if: PTT is greater than or equal to 200.
Vital Signs As Directed
Frequency: Per unit guidelines
01/06/25 00:27
Promethazine [Phenergan] 12.5 mg PO Q6HPRN PRN
01/06/25 00:31
Sumatriptan Succinate [Imitrex] 100 mg PO DAILYPRN PRN
01/06/25 Breakfast
Regular
Complete Blood Count/No Diff IN AM
01/07/25 06:00
Complete Blood Count/No Diff Q2D
Comment: notify provider: Platelet count < 130,000 or decrease by 50% from baseline
01/09/25 06:00
Complete Blood Count/No Diff Q2D
Comment: notify provider: Platelet count < 130,000 or decrease by 50% from baseline
01/11/25 06:00
Complete Blood Count/No Diff Q2D
Comment: notify provider: Platelet count < 130,000 or decrease by 50% from baseline
01/13/25 06:00
Complete Blood Count/No Diff Q2D
Comment: notify provider: Platelet count < 130,000 or decrease by 50% from baseline
01/15/25 06:00
Complete Blood Count/No Diff Q2D
Comment: notify provider: Platelet count < 130,000 or decrease by 50% from baseline
01/17/25 06:00
Complete Blood Count/No Diff Q2D
Comment: notify provider: Platelet count < 130,000 or decrease by 50% from baseline
01/19/25 06:00
Complete Blood Count/No Diff Q2D
Comment: notify provider: Platelet count < 130,000 or decrease by 50% from baseline
01/21/25 06:00
Complete Blood Count/No Diff Q2D
Comment: notify provider: Platelet count < 130,000 or decrease by 50% from baseline
Abnormal Lab Results
01/05/25
20:32
RBC 3.78 L 10^6/uL
(4.20-5.40)
Hgb 11.4 L g/dL
(12.0-16.0)
Hct 33.2 L %
(37.0-47.0)
MPV 11.0 H fL
(7.4-10.4)
Absolute Monos (auto) 0.8 H 10^3/uL
(0.1-0.6)
Carbon Dioxide 21 L mmol/L
(22-30)
BUN 18 H mg/dl
(7-17)
01/05/25 20:32
01/05/25 20:32
Vital Signs
Initial and Last Documented VS:
Initial Vital Signs
Temp Pulse Resp BP Pulse Ox
98.4 F 94 18 129/77 99
01/05/25 18:42 01/05/25 18:42 01/05/25 18:42 01/05/25 18:42 01/05/25 18:42
Last Documented Vital Signs
Temp Pulse Resp BP Pulse Ox
97.8 F 76 16 138/94 100
01/06/25 00:25 01/06/25 00:25 01/06/25 00:25 01/06/25 00:25 01/06/25 00:25
<Spenser Morales DO - Last Filed: 01/05/25 22:29>
Orders/Labs/Results
Orders:
Orders
01/05/25 18:50
CR Chest - 2 Views Urgent
Comment:
Reason For Exam: verify PICC placement
US Arms, Left [US Periph Venous UPPER Ext LT] Urgent
Comment:
Reason For Exam: left PICC line and arm pain
01/05/25 20:09
Test Result ONCE
01/05/25 20:32
Complete Blood Count/With Diff Urgent
Comprehensive Metabolic Panel Urgent
HCG, Serum Qualitative Screen Urgent
01/05/25 22:36
Heparin 4,100 units IV NOW STA
Nursing to Place Non Medication Order As Directed
Physician Order: PTT 6 hours after initial start of Heparin infusion
01/05/25 22:45
Admit/Transfer Patient As Directed
Co-Sign Provider:
Level of Care: Inpatient admission
Assign to:: Medical/Surgical
Physician / Group: dallas cancino
Diagnosis: DVT
Reason for Hospitalization: DVT
Expected length of stay greater than two midnights?: Yes
ELOS- Estimated Length of Stay in days: 3
I certify the patient meets the requirements for IP care: Yes
Code Status As Directed
Resuscitation Status: Full Code
Heparin 50634 Units/250 ml 25,000 units in 250 ml IV PER PROTOCOL
Weight to be used for heparin protocol in kilograms (kg):: 51.1
Protocol:: DVT/PE
PTT Goal Range to be used:: PTT 73 to 111 seconds
Order type:: Initial
INITIAL Infusion Dose (UNITS/KG/hr) & then follow protocol:: 18 units/kg/hr
Infusion Dose in UNITS/hr & then follow protocol (UNITS/hr):: 900
INFUSION RATE in mL/hr & then follow protocol (mL/hr):: 9
For DVT/PE algorithm, re-bolus for low PTT?: Yes
PTT less than or equal to 64 seconds:: Re-bolus 80 units/kg (max 10,000units). Increase by 200 units/hr
(+ 2mL/hr)
PTT 64.1 to 72.9 seconds:: Re-bolus 40 units/kg (max 5,000 units). Increase by 100 units/hr
(+ 1mL/hr)
PTT 73 to 111 seconds:: Target Range. No change in rate.
PTT 111.1 to 130.9 seconds:: Decrease rate by 100 units/hr (- 1 mL/hr)
PTT 131 to 199.9 seconds:: HOLD for 1 hr. Then decrease by 200 units/hr (- 2mL/hr)
PTT greater than or equal to 200 seconds:: HOLD for 2 hrs & Notify Provider. Then decrease by 200 units/hr
(- 2mL/hr)
Lab follow-up:: Each change, PTT q6h until 2 consecutive are therapeutic. Then
PTT daily.
PRN Pain Medication Management As Directed
May give lesser potent ordered pain med per pt: Yes
preference::
Protocol:: Medication orders for pain may be administered in a
manner that supports deferring to patient preference
when the pt is:
- Requesting an ordered lesser potent pain medication.
Least to most potent pain medications are defined
as: acetaminophen < NSAID < tramadol < opioids
(morphine, oxycodone, hydromorphone).
- Requesting a lesser dose of the same medication IF
ORDERED.
- Requesting a less intrusive route of administration
if both routes are prescribed by the provider (PO <
IV).
01/05/25 22:48
PTT Urgent
Comment: Obtain baseline before beginning heparin infusion if not already collected
01/05/25 23:00
HEMATOLOGY CONSULT Routine
Consulting Provider: Gus Yost
Was physician already notified: No
Reason for consult: DVT
01/05/25 23:01
Consult Notification Routine
Specialty to Notify: Hematology
01/05/25 23:03
HYDROmorphone [Dilaudid] 0.25 mg IV Q4HPRN PRN
01/05/25 23:12
Heparin 4,100 units IV Q6HPRN PRN
01/05/25 23:13
Heparin 2,000 units IV Q6HPRN PRN
01/06/25 00:20
Acetaminophen [Tylenol] 650 mg PO Q4HPRN PRN
Bisacodyl [Dulcolax] 10 mg RECTAL [id number] PRN
Docusate W/Senna [Senokot-S] 1 tablet PO BIDPRN PRN
Polyethylene Glycol Powder [Miralax] 17 grams PO DAILYPRN PRN
Simethicone [Mylicon] 80 mg PO DAILYPRN PRN
Tramadol HCl [Ultram] 50 mg PO Q6HPRN PRN
rimegepant [Nurtec ODT] 75 mg PO DAILYPRN PRN
01/06/25 00:20
Case Management Consult ONCE
Case Management Consult: Other
Heparin Protocol- PTT Orders As Directed
PTT per Heparin protocol: -Obtain CBC and baseline PTT - if not already collected.
-Obtain PTT 6 hours from start of infusion. Then, every 6 hours until 2 consecutive
PTT's are therapeutic. Then, PTT Daily.
-With each rate change, obtain PTT every 6 hours until 2 consecutive PTT's are
therapeutic. Then, PTT Daily.
Activity As Directed
Activity Level: As Tolerated
Notify MD As Directed
Notify physician if: PTT is greater than or equal to 200.
Vital Signs As Directed
Frequency: Per unit guidelines
01/06/25 00:27
Promethazine [Phenergan] 12.5 mg PO Q6HPRN PRN
01/06/25 00:31
Sumatriptan Succinate [Imitrex] 100 mg PO DAILYPRN PRN
01/06/25 Breakfast
Regular
Complete Blood Count/No Diff IN AM
01/07/25 06:00
Complete Blood Count/No Diff Q2D
Comment: notify provider: Platelet count < 130,000 or decrease by 50% from baseline
01/09/25 06:00
Complete Blood Count/No Diff Q2D
Comment: notify provider: Platelet count < 130,000 or decrease by 50% from baseline
01/11/25 06:00
Complete Blood Count/No Diff Q2D
Comment: notify provider: Platelet count < 130,000 or decrease by 50% from baseline
01/13/25 06:00
Complete Blood Count/No Diff Q2D
Comment: notify provider: Platelet count < 130,000 or decrease by 50% from baseline
01/15/25 06:00
Complete Blood Count/No Diff Q2D
Comment: notify provider: Platelet count < 130,000 or decrease by 50% from baseline
01/17/25 06:00
Complete Blood Count/No Diff Q2D
Comment: notify provider: Platelet count < 130,000 or decrease by 50% from baseline
01/19/25 06:00
Complete Blood Count/No Diff Q2D
Comment: notify provider: Platelet count < 130,000 or decrease by 50% from baseline
01/21/25 06:00
Complete Blood Count/No Diff Q2D
Comment: notify provider: Platelet count < 130,000 or decrease by 50% from baseline
Abnormal Lab Results
01/05/25
20:32
RBC 3.78 L 10^6/uL
(4.20-5.40)
Hgb 11.4 L g/dL
(12.0-16.0)
Hct 33.2 L %
(37.0-47.0)
MPV 11.0 H fL
(7.4-10.4)
Absolute Monos (auto) 0.8 H 10^3/uL
(0.1-0.6)
Carbon Dioxide 21 L mmol/L
(22-30)
BUN 18 H mg/dl
(7-17)
01/05/25 20:32
01/05/25 20:32
Vital Signs
Initial and Last Documented VS:
Initial Vital Signs
Temp Pulse Resp BP Pulse Ox
98.4 F 94 18 129/77 99
01/05/25 18:42 01/05/25 18:42 01/05/25 18:42 01/05/25 18:42 01/05/25 18:42
Last Documented Vital Signs
Temp Pulse Resp BP Pulse Ox
97.8 F 76 16 138/94 100
01/06/25 00:25 01/06/25 00:25 01/06/25 00:25 01/06/25 00:25 01/06/25 00:25
<Lisa Luciano PA-C - Last Filed: 01/06/25 00:51>
MDM/Problems Addressed
Differential Diagnosis Includes:
29yoF here with L arm pain x 2 days. Has PICC line in place in L upper arm. Reports low grade temps over the past few weeks although temp is normal here at 98.4. Remainder of vitals stable. Left arm appears normal without any skin changes.
Differential diagnosis includes but is not limited to: DVT, musculoskeletal pain, no clinical signs of cellulitis/abscess
Initial ED plan: Venous duplex obtained in triage. Occlusive thrombus in the left axillary vein surrounding PICC line noted. CBC, CMP, and hCG ordered.
<Lisa Luciano PA-C - Last Filed: 01/06/25 00:51>
*Critical Care Note
Total Time (30-74mins, 75-104mins- exclusive of procedures): Not Applicable
<Lisa Luciano PA-C - Last Filed: 01/06/25 00:51>
Update Note
Update Note:
Labs overall unremarkable and hCG testing negative. Patient very concerned about being started on p.o. anticoagulation due to absorption issues related to her ileostomy. Patient also concerned regarding her low-grade temperatures. This possibly
is due to the underlying DVT. White count and temperature normal. She is not meeting any sepsis criteria and has had multiple rounds of blood cultures recently which were negative. Patient requesting to be admitted which is not unreasonable. IV
heparin initiated and she was admitted for further management.
ED Attending Note
<Lisa Luciano PA-C - Last Filed: 01/06/25 00:51>
-
Portions of this chart may have been created with voice recognition software.� Occasional wrong word or��sound alike� substitutions may have occurred due to the inherent limitations of voice recognition software.
<Spenser Morales DO - Last Filed: 01/05/25 22:29>
ED Attending Note
Patient seen and examined by attending physician: Yes
I performed the substantive portion of visit, reviewed & personally made and approve the management plan that is documented in note by myself or OMAR.: Yes
ED Attending Note:
Seen with ARCHIE examined independently 29-year-old female with complex medical history of perforation high output ostomy, PICC line, she has had some low-grade fevers negative cultures has a clot there tonight up-to-date reviewed typically the line
would not be removed unless it is clearly infected reviewed anticoagulation options with the patient she is nervous about taking NOAC she is afraid that she may not absorb it. Wondering about heparin or Lovenox which is not unreasonable, she is
also worried that she could have an infection she has had sepsis and staph infections before again not unreasonable at this point consideration put her in the hospital for observation we have some specialist time and on the right treatment for her
which very well may be a NOAC
Discharge Plan
Departure
Patient Disposition: Admit
Date of Disposition: 01/05/25
Time of Disposition: 22:37
Presentation/result/management discussed w/ accepting MD/DO: Hospitalist
Discharge Problem:
Acute deep vein thrombosis of upper extremity
Interventions
Interventions:
*Risk Screen - Suicide Last Done: 01/05/25 18:42
*General Assessment Last Done: 01/05/25 18:42
*Neglect/Abuse Screening Last Done: 01/06/25 00:20
*ED- Fall Risk Assessment Last Done: 01/05/25 18:42
*ED COVID-19 Vaccine History Last Done: 01/05/25 18:42
*Nursing Disposition Last Done: 01/06/25 00:20
ED-Skin Assessment Last Done: 01/05/25 23:08
Discharge Date and Time
Discharge Date/Time: 01/06/25 00:20
[2025-01-05 20:16] VITALS: BMI 22.0
[2025-01-05 20:42] LABS: % Basophils 0.4 % (0-2); % Eosinophils 1.7 % (0-6); % Immature Granulocytes 0.5 % (0-0.5); % Lymphocytes 26.2 % (20.5-51.1); % Neutrophils 62.2 % (42.2-75.2); Absolute Eosinophils 0.1 10^3/uL (0-0.7); Absolute Lymphocytes 2.2 10^3/uL (1.2-3.4); Absolute Monocytes 0.8 10^3/uL (0.1-0.6); Absolute Neutrophils 5.3 10^3/uL (1.4-6.5); Hematocrit 33.2 % (37.0-47.0); Hemoglobin 11.4 g/dL (12.0-16.0); Mean Corp Hgb Conc. 34.3 g/dL (33.0-37.0); Mean Corpuscular Hgb 30.2 pg (27.0-31.0); Mean Corpuscular Volume 87.8 fL (81.0-99.0); Nucleated Red Blood Cells % 0 %; Platelet Count 199 10^3/uL (130-400); Red Blood Cell Count 3.78 10^6/uL (4.20-5.40); Red Cell Dist. Width 12.6 % (11.5-14.5); White Blood Cell Count 8.5 10^3/uL (4.8-10.8)
[2025-01-05 20:58] LABS: HCG, Serum Qualitative Screen Negative
[2025-01-05 21:04] LABS: ALT (SGPT) 18 U/L (0-35); AST (SGOT) 29 U/L (14-36); Albumin 4.8 g/dl (3.5-5.0); Alkaline Phosphatase 56 U/L (38-126); Blood Urea Nitrogen 18 mg/dl (7-17); Calcium 10.2 mg/dl (8.4-10.2); Carbon Dioxide 21 mmol/L (22-30); Chloride 102 mmol/L (98-107); Estimated Creatinine Clearance 86 ml/min; Glucose 96 mg/dl (70-99); Potassium 4.9 mmol/L (3.5-5.1); Sodium 135 mmol/L (135-145); Total Bilirubin 0.5 mg/dl (0.2-1.3); eGFR > 60.00
--- NOTE | 2025-01-05 22:52 | HPS.HSE ---
Family Physician
-
Family Physician: NOT KNOW UNKNOWN - PT DOES
Chief Complaint
-
Pain in the Lt arm with PICC
History of Present Illness
HPI
29F HX ileostomy with multiple ileostomy revisions, hi output ileostomy history with gastroparesis gastritis to the point that she self administers saline infusions every other day to replenish ileostomy losses also with a history of chronic anemia
iron deficiency, Lt arm PICC sen at ER:
- left arm pain x 2 days
- some skin changes around her PICC line last month as well as low-grade temperatures around 99.
- She had 2 separate rounds of blood cultures, last set was obtained 6 days ago, and both came back negative.
- skin changes have since resolved.
- pain in her left upper arm which feels like it is deep in the muscle which prompted her ED visit.
She denies any chest pain, shortness of breath, syncope.
Medical History
Past Medical History
Past Medical History: Reports Other (spontaneous colon rupture at age 20 status post ileostomy, multiple ileostomy revisions,, high output ileostomy, gastroparesis, gastritis, chronic anemia/iron deficiency anemia, migraines status post occipital
nerve resection, psoriatic arthritis, chronic back pain)
Past Surgical History: Reports Other (ileostomy, multiple ileostomy revisions, occipital nerve resection)
Social History
Tobacco: Non-smoker
Alcohol: None
Drug: None
Family History
Family History: Not pertinent
Allergies / Home Medications
Allergies reflects when Allergies were last updated in [facility].
Home Medications with original date entered in [facility]
Allergy/Medication List:
Allergies
Allergy/AdvReac Type Severity Reaction Status Date / Time
latex Allergy Itching Verified 02/16/24 11:48
prednisone Allergy Unknown Verified 02/16/24 11:48
Home Medications
lansoprazole 30 mg capsule,delayed release 30 mg PO BID 12/29/22
promethazine 12.5 mg tablet 25 mg PO Q6H PRN nausea 12/29/22
sumatriptan succinate 100 mg tablet (Imitrex) 250 mg PO PRN PRN migraines 12/29/22
tramadol 50 mg tablet 50 mg PO Q6H PRN breakthrough pain 12/29/22
Heparin 5 ml IV HS 02/16/24
folic acid 1 ml PO BID 02/16/24
rimegepant 75 mg disintegrating tablet (Nurtec ODT) 75 mg PO DAILY PRN intense migraine 02/16/24
sodium chloride 0.9 % 1.5 l IV Q48H 02/16/24
sodium chloride 0.9 % (flush) 10 ml IV HS 02/16/24
sumatriptan succinate 6 mg/0.5 mL subcutaneous pen injector 6 mg SC DAILY PRN intense migraine 02/16/24
Review of Systems
-
History Source: Patient
A 12 point ROS was completed and negative except as noted: Yes
Constitutional: Reports No Symptoms
EENT: Reports No Symptoms
Respiratory: Reports No Symptoms
Cardiac: Reports No Symptoms
Abdomen/GI: Reports See HPI
: Reports No Symptoms
Musculoskeletal: Reports See HPI
Skin: Reports No Symptoms
Neurological: Reports No Symptoms
Endocrine: Reports No Symptoms
Hematologic/Lymphatic: Reports No Symptoms
Psych: Reports No Symptoms
Physical Exam
Vital Signs
Vital Signs
Temp Pulse Resp BP Pulse Ox
98.4 F 94 18 129/77 99
01/05/25 18:42 01/05/25 18:42 01/05/25 18:42 01/05/25 18:42 01/05/25 18:42
Physical Exam
General: Well Developed, Well Nourished and No Apparent Distress
HEENT: NormoCephalic, Moist mucous membranes and Atraumatic
Respiratory: Clear
Cardiac: S1/S2 and Regular Rhythm; No Murmur or Rub
GI: Soft, Non Tender, Non Distended and Normal Bowel Sounds; No Organomegaly
Rectal: Deferred by Provider
Musculoskeletal: No Clubbing, No Cyanosis and No Edema
Skin: No Rash
Neuro: Nonfocal/grossly intact
Laboratory Results
-
01/05/25 20:32
01/05/25 20:32
Laboratory Results
Total Bilirubin 0.5 mg/dl (0.2-1.3) 01/05/25 20:32
AST 29 U/L (14-36) 01/05/25 20:32
ALT 18 U/L (0-35) 01/05/25 20:32
Alkaline Phosphatase 56 U/L (38-126) 01/05/25 20:32
Data Reviewed
-
Ultrasound: Report Reviewed by me
Lab Data: Labs Reviewed by me
Old Records: Reviewed
Impression/Plan
-
Laboratory Tests
02/18/24 01/05/25
04:26 20:32
WBC 8.5
Hgb 8.6 L D 11.4 L
Plt Count 199
Carbon Dioxide 21 L
BUN 18 H
Creatinine 0.7
eGFR > 60.00
HCG, Qual Negative
US Periph Venous UPPER Ext LT
- Occlusive thrombus within the left axillary vein, surrounding PICC line.
CXR: pending final report
Last hospitalist admission: 02/16/24 - 02/18/24
DC DX;
Acute enteritis from norovirus
Dehydration
Hypokalemia
Iron deficiency anemia
Folate deficiency
ASSESSMENT & PLAN
Pending Rx reconciliation
PICC related Lt arm occlusive thrombus in L axillary vein.
- Poor absorption of PO Meds due to hi output ileostomy.
- Heparin gtt via peripheral line
- To consider OP Lovenox due to poor absorption of PO Meds
- To consider removal of PICC
- PRN Dilaudid 0.25mg q4h prn
- Heme consult
- CRM consult
Chr condition:
HX spontaneous colon rupture status post ileostomy
HX gastroparesis
HX gastritis
HX chronic microcytic anemia likely due to iron malabsorption
HX folate deficiency
HX Migraine history status post vestibular nerve resection
Psoriatic arthritis
Chronic back pain
DVT Px: Heparin gtt
Full code
IP MS
[2025-01-05 22:57] VITALS: BP 114/77
[2025-01-05 23:14] LABS: APTT 24.4 Sec (23.4-35.0)
[2025-01-05] MEDS: DILAUDID 0.25 MG IV (23:39)
[2025-01-05] MEDS: HEPARIN 4100 UNITS IV (23:40)
[2025-01-05] MEDS: HEPARIN 25000 UNITS/250 ML IV (23:42)
[2025-01-06 00:25] VITALS: BP 138/94; BMI 22.2
--- NOTE | 2025-01-06 01:06 | PTCARENOTE ---
Pt received from ED via stretcher. Ambulated to room independently w/o incident. Oriented to surroundings and plan of care discussed. AAOx3, pleasant. Admission and assessment completed. Ileostomy w/modesty bag --> pt self care reports
appliance changed 01/05. Menses started 01/05. #22 RFA w/heparin infusing at 900 units/hr w/o complication. Call codie w/in reach.
[2025-01-06 06:19] LABS: Hematocrit 30.7 % (37.0-47.0); Hemoglobin 10.2 g/dL (12.0-16.0); Mean Corp Hgb Conc. 33.2 g/dL (33.0-37.0); Mean Corpuscular Hgb 29.9 pg (27.0-31.0); Mean Platelet Volume 11.4 fL (7.4-10.4); Platelet Count 174 10^3/uL (130-400); Red Blood Cell Count 3.41 10^6/uL (4.20-5.40); Red Cell Dist. Width 12.6 % (11.5-14.5); White Blood Cell Count 5.9 10^3/uL (4.8-10.8)
[2025-01-06 06:32] LABS: APTT 177.7 Sec (23.4-35.0)
[2025-01-06] MEDS: DILAUDID 0.25 MG IV ×3 (06:34→20:10)
[2025-01-06 07:51] VITALS: BP 98/53
--- NOTE | 2025-01-06 10:14 | CON.ONC ---
Impression
Impression
PICC associated thrombus
anemia, Hx NÉSTOR, folate, b12, copper deficiency
Plan
Plan
check baseline ddimer
check retic, iron studies, B12, folate -can follow up with her primary sample examiner for repletion in the outpatient setting.
remove picc and replace on contralateral side. She needs IVF at home QOD.
Culture picc tip at time of removal
on heparin gtt
pt with short gut and often sees medications pass in her ostomy so prefers therapeutic enoxaparin for management of acute VTE. Could use enoxparin 1.5mg/kg daily at discharge.
1st provoked event. Would repeat LUE US and ddimer in 12 weeks to ensure resolution of VTE prior to consideration of continued therapeutic anticoagulation vs ppx vs cessation depending on if there are continued ongoing provoking factors. She will
continue this conversation with her primary sample examiner for continued management.
symptom support with elevation, compression, and pain management
Patient History
History of Present Illness
29yo F with high ostomy output and infuses IVF via LUE PICC every other day presented with LUE pain and swelling x 2 days. An ultrasound of her LUE showed an Occlusive thrombus within the left axillary vein, surrounding PICC line. Nonocclusive
thrombus within the proximal basilic vein with occlusive thrombus within the basilic vein in the midportion of the upper arm. Admission labs show WBC 8.5, Hgb 11.4, MCV 87.8, platelet count 199,000. HCG negative. normal renal function and LFTs. She
has been admitted and started on a heparin gtt.
She tells me that she follows up with a sample examiner at [place] regularly for iron, b12, folate, and copper deficiencies that are a result of malabsorption due to her short gut. She denies any overt bleeding. She currently has her menstrual cycle with
medium flow, however, often has several months of amenorrhea. Denies use of OCP.
Afebrile, no hypoxia or hypotension
Past-Medical/Surgical History
PMH/PSH spontaneous colon rupture at age 20 status post ileostomy, multiple ileostomy revisions, high output ileostomy, gastroparesis, gastritis, chronic anemia/iron deficiency anemia, migraines status post occipital nerve resection, psoriatic
arthritis, chronic back pain
Social non smoker, denies ETOH or recreational drugs
Family non-contributory
Patient Medication
�Medication �Instructions �Recorded �Confirmed �Last Taken �Type
promethazine 12.5 mg tablet 12.5 mg PO Q6HPRN PRN nausea 12/29/22 01/05/25 Unknown History
sumatriptan succinate 100 mg 100 mg PO DAILYPRN PRN migraines 12/29/22 01/05/25 Unknown History
tablet (Imitrex)
tramadol 50 mg tablet 50 mg PO Q6HPRN PRN breakthrough 12/29/22 01/05/25 Unknown History
pain
Heparin 5 ml IV HS Blood Clot Prevention/Tx 02/16/24 01/05/25 02/15/24 History
rimegepant 75 mg disintegrating 75 mg PO DAILYPRN PRN intense 02/16/24 01/05/25 Unknown History
tablet (Nurtec ODT) migraine
sodium chloride 0.9 % 1.5 l IV Q48H hydration 02/16/24 01/05/25 02/14/24 History
sodium chloride 0.9 % (flush) 10 ml IV HS iv production line manager 02/16/24 01/05/25 02/15/24 History
simethicone 80 mg chewable tablet 80 mg PO DAILYPRN PRN gas 01/05/25 01/05/25 Unknown History
Active Medications
Generic Name Dose Route Start Last Admin
Trade Name Freq PRN Reason Stop Dose Admin
Acetaminophen 650 mg 01/06/25 00:20
Acetaminophen 325 Mg Tablet PO 02/03/25 00:19
Q4HPRN PRN
mild pain/LEWIS/temp> 100.4F
Bisacodyl 10 mg 01/06/25 00:20
Bisacodyl 10 Mg Rectal Suppository RECTAL 02/03/25 00:19
[id number] PRN
constipation
Heparin Sodium 4,100 units 01/05/25 23:12
Heparin 80 Units/Kg Iv Rebolus IV 02/02/25 23:11
Q6HPRN PRN
PTT < OR = 64 seconds
Heparin Sodium 2,000 units 01/05/25 23:13
Heparin 40 Units/Kg Iv Rebolus IV 02/02/25 23:12
Q6HPRN PRN
PTT = 64.1 to 72.9 seconds
Hydromorphone HCl 0.25 mg 01/05/25 23:03 01/06/25 06:34
Hydromorphone 0.25 Mg/0.5 Ml Syringe IV 01/19/25 23:02 0.25 mg
Q4HPRN PRN Administration
moderate pain
Heparin Sodium 25,000 units in 250 mls @ 0 mls/hr 01/05/25 22:45 01/05/25 23:42
Heparin 33652 Units/250 Ml IV 250 mls
PER PROTOCOL GISELA Administration
Protocol
Per Protocol
Non-Formulary Medication 75 mg 01/06/25 00:20
Rimegepant [Nurtec Odt] PO
DAILYPRN PRN
intense migraine
Polyethylene Glycol 17 grams 01/06/25 00:20
Polyethylene Glycol Powder 17 Grams Packet PO 02/03/25 00:19
DAILYPRN PRN
constipation
Promethazine HCl 12.5 mg 01/06/25 00:27
Promethazine 25 Mg Tablet PO 02/03/25 00:26
Q6HPRN PRN
nausea
Senna/Docusate Sodium 1 tablet 01/06/25 00:20
Docusate W/Senna (Yane-Colace) Tablet PO 02/03/25 00:19
BIDPRN PRN
constipation
Simethicone 80 mg 01/06/25 00:20
Simethicone 80 Mg Chewable Tablet PO 02/03/25 00:19
DAILYPRN PRN
gas
Sodium Chloride 0 flush 01/06/25 01:00
Sodium Chloride 0.9% (Flush) Syringe IV 02/03/25 00:59
PER PROTOCOL GISELA
Sumatriptan Succinate 100 mg 01/06/25 00:31
Sumatriptan (Imitrex) 50 Mg Tablet PO 02/03/25 00:30
DAILYPRN PRN
migraines
Tramadol HCl 50 mg 01/06/25 00:20
Tramadol Hcl 50 Mg Tablet PO 02/03/25 00:19
Q6HPRN PRN
breakthrough pain
Review of Systems
-
ROS is notable for HPI, otherwise negative
Physical Exam
-
General: Well Developed, Well Nourished and No Apparent Distress
HEENT: Moist mucous membranes and Atraumatic
Respiratory: Clear
Cardiac: S1/S2 and Regular Rhythm; No Murmur
GI: Soft, Non Tender, Non Distended
Rectal: Deferred by Provider
Musculoskeletal: No Edema
Skin: No Rash
Neuro: Nonfocal/grossly intact
Labs
Lab Results
WBC 5.9 10^3/uL (4.8-10.8) 01/06/25 06:00
RBC 3.41 10^6/uL (4.20-5.40) L 01/06/25 06:00
Hgb 10.2 g/dL (12.0-16.0) L 01/06/25 06:00
Hct 30.7 % (37.0-47.0) L 01/06/25 06:00
MCV 90.0 fL (81.0-99.0) 01/06/25 06:00
MCH 29.9 pg (27.0-31.0) 01/06/25 06:00
MCHC 33.2 g/dL (33.0-37.0) 01/06/25 06:00
RDW 12.6 % (11.5-14.5) 01/06/25 06:00
Plt Count 174 10^3/uL (130-400) 01/06/25 06:00
MPV 11.4 fL (7.4-10.4) H 01/06/25 06:00
Abs Immat Gran (auto) 0.0 10^3/uL (0-0.05) 01/05/25 20:32
Absolute Neuts (auto) 5.3 10^3/uL (1.4-6.5) 01/05/25:
Absolute Lymphs (auto) 2.2 10^3/uL (1.2-3.4) 01/05/25 20:32
Absolute Monos (auto) 0.8 10^3/uL (0.1-0.6) H 01/05/25 20:32
Absolute Eos (auto) 0.1 10^3/uL (0-0.7) 01/05/25 20:32
Absolute Basos (auto) 0.0 10^3/uL (0-0.2) 01/05/25 20:32
Immature Gran % 0.5 % (0-0.5) 01/05/25 20:32
Neutrophils % 62.2 % (42.2-75.2) 01/05/25 20:32
Lymphocytes % 26.2 % (20.5-51.1) 01/05/25 20:32
Monocytes % 9.0 % (1.7-9.3) 01/05/25 20:32
Eosinophils % 1.7 % (0-6) 01/05/25:
Basophils % 0.4 % (0-2) 01/05/25 20:32
Creatinine 0.7 mg/dL (0.6-1.0) 01/05/25 20:32
Vital Signs
Vital Signs
Temp Pulse Resp BP Pulse Ox
97.8 F 76 16 138/94 100
01/06/25 00:25 01/06/25 00:25 01/06/25 00:25 01/06/25 00:25 01/06/25 00:25
[2025-01-06 10:59] LABS: D-Dimer < 0.27 ug/mlFEU (0.00-0.50)
[2025-01-06 11:12] LABS: Iron 45 ug/dl (37-170)
[2025-01-06 11:21] LABS: Percent Saturation 9 % (20-50); Total Iron Binding Capacity 498 ug/dl (265-497)
--- NOTE | 2025-01-06 11:38 | W.PN.HOSP.TC ---
Today's Communication/Plan
-
see plan
Assessment / Plan
Assessment / Plan
Ms. Mohini Merlos is a 29 yo woman with hx ileostomy with multiple ileostomy revisions, hi output ileostomy receives IVF at home, chronic anemia, presents to the ER with left upper arm pain, found to have a DVT.
IMPRESSION: Occlusive thrombus within the left axillary vein, surrounding PICC line.
Nonocclusive thrombus within the proximal basilic vein with occlusive thrombus within the basilic vein in the midportion of the upper arm.
PICC related Lt arm occlusive thrombus in L axillary vein.
- Poor absorption of PO Meds due to hi output ileostomy.
- Heparin gtt via peripheral line
- plan to exchange PICC tomorrow (patient needs sedation); IR consulted
- eventual DC on Lovenox
- appreciate Hematology
Chr condition:
HX spontaneous colon rupture status post ileostomy
HX gastroparesis
HX gastritis
HX chronic microcytic anemia likely due to iron malabsorption - IV iron to start post PICC placement
HX folate deficiency
HX Migraine history status post vestibular nerve resection
Psoriatic arthritis
Chronic back pain
DVT Px: Heparin gtt
Full code
IP MS
Anticipated Discharge: 24 - 48 hours
Subjective/Interval History
-
Date of Service: January 06, 2025
has throbbing in left arm
Objective Data
-
Labs:
Laboratory Results
01/06/25 01/06/25
06:00 13:35
WBC 5.9
Hgb 10.2 L
Hct 30.7 L
Plt Count 174
APTT 177.7 H* Pending
Vital Signs:
Vital Signs
Temp Pulse Resp BP Pulse Ox
98 F 70 18 98/53 100
01/06/25 07:51 01/06/25 07:51 01/06/25 07:51 01/06/25 07:51 01/06/25 07:51
I&O
01/05/25 01/06/25 01/07/25
06:59 06:59 06:59
Intake Total 0 / 0
Balance 0 / 0
Review of Systems
-
History Source: Patient
All other systems: Reviewed and negative
Physical Exam
-
General: Well Developed (Appears pale)
HEENT: Normocephalic
Respiratory: Clear to Auscultation
Cardiac: Regular Rhythm
GI: Soft, Nontender and Ostomy (Ileostomy intact with good output)
Rectal: Brown
Musculoskeletal: No Clubbing
Psych: Calm
Data Reviewed
-
Diagnostic Radiology: Report Reviewed by me
Labs: Labs Reviewed by me
[2025-01-06 12:00] LABS: Ferritin 6.6 ng/ml (6.24-137)
--- NOTE | 2025-01-06 12:27 | CM ---
CM reviewed chart, patient seen bedside, initial assessment completed. Patient resides independently in an apartment in [place], reports her parents live in [place], doctors are primarily [facility]. Patient independent with ADLs/IADLs, current with
[facility] [place], will place return of care referral. Patient PCP Smiley Stallings, pharmacy [facility] in [facility] ([address] [phone]). Patient denies needs at this time, will continue to follow for all discharge planning needs.
Plan; home with [facility]
[2025-01-06 14:34] LABS: APTT 44.7 Sec (23.4-35.0)
[2025-01-06] MEDS: HEPARIN 4100 UNITS IV (14:43)
[2025-01-06 15:19] VITALS: BP 95/54
[2025-01-06] MEDS: FLUSH (NSS) 1 FLUSH IV (20:10)
[2025-01-06 21:49] LABS: APTT 76.9 Sec (23.4-35.0)
[2025-01-06 23:48] VITALS: BP 108/65
[2025-01-07 04:01] LABS: Hematocrit 32.1 % (37.0-47.0); Hemoglobin 10.3 g/dL (12.0-16.0); Mean Corp Hgb Conc. 32.1 g/dL (33.0-37.0); Mean Corpuscular Hgb 29.7 pg (27.0-31.0); Mean Corpuscular Volume 92.5 fL (81.0-99.0); Mean Platelet Volume 10.9 fL (7.4-10.4); Platelet Count 167 10^3/uL (130-400); Red Blood Cell Count 3.47 10^6/uL (4.20-5.40); Red Cell Dist. Width 12.8 % (11.5-14.5)
[2025-01-07 04:20] LABS: APTT 74.2 Sec (23.4-35.0)
[2025-01-07 04:26] LABS: Blood Urea Nitrogen 21 mg/dl (7-17); Calcium 9.2 mg/dl (8.4-10.2); Carbon Dioxide 22 mmol/L (22-30); Chloride 107 mmol/L (98-107); Estimated Creatinine Clearance 100 ml/min; Glucose 89 mg/dl (70-99); Potassium 4.4 mmol/L (3.5-5.1); Sodium 136 mmol/L (135-145); eGFR > 60.00
[2025-01-07 05:32] LABS: Folate 2.1 ng/ml (2.76-20); Vitamin B12 841 pg/ml (239-931)
[2025-01-07] MEDS: HEPARIN 25000 UNITS/250 ML IV (06:03)
[2025-01-07 07:42] VITALS: BP 117/68
[2025-01-07] MEDS: DILAUDID 0.25 MG IV ×3 (08:38→23:36)
--- NOTE | 2025-01-07 11:06 | W.PN.HOSP.TC ---
Today's Communication/Plan
-
transition to subQ Lovenox this evening
IR PICC replacement today
IV iron and IVF post PICC
Assessment / Plan
Assessment / Plan
Ms. Mohini Merlos is a 29 yo woman with hx ileostomy with multiple ileostomy revisions, hi output ileostomy receives IVF at home, chronic anemia, presents to the ER with left upper arm pain, found to have a DVT.
IMPRESSION: Occlusive thrombus within the left axillary vein, surrounding PICC line.
Nonocclusive thrombus within the proximal basilic vein with occlusive thrombus within the basilic vein in the midportion of the upper arm.
PICC related left arm occlusive thrombus in L axillary vein, proximal basilic vein and in midportion of arm
- Poor absorption of PO Meds due to high output ileostomy.
- Heparin gtt via peripheral line
- plan to exchange PICC today by IR with sedation
- eventual DC on Lovenox - will do 1.5mg/kg daily (80mg daily - confirmed dosing with pharmacy)
- appreciate Hematology
Chr condition:
HX spontaneous colon rupture status post ileostomy
HX gastroparesis
HX gastritis
HX chronic microcytic anemia likely due to iron malabsorption - IV iron to start post PICC placement
HX folate deficiency
HX Migraine history status post vestibular nerve resection
Psoriatic arthritis
Chronic back pain
DVT Px: Heparin gtt
Full code
IP MS
Anticipated Discharge: 24 - 48 hours
Subjective/Interval History
-
Date of Service: January 07, 2025
continues to have throbbing pain left upper extremity
no dizziness
Objective Data
-
Labs:
Laboratory Results
01/07/25
03:52
WBC 6.0
Hgb 10.3 L
Hct 32.1 L
Plt Count 167
APTT 74.2 H
Sodium 136
Potassium 4.4
Chloride 107
Carbon Dioxide 22
BUN 21 H
Creatinine 0.6
Glucose 89
Calcium 9.2
Vital Signs:
Vital Signs
Temp Pulse Resp BP Pulse Ox
98.6 F 59 18 117/68 100
01/07/25 07:42 01/07/25 07:42 01/07/25 07:42 01/07/25 07:42 01/07/25 07:42
I&O
01/06/25 01/07/25 01/08/25
06:59 06:59 06:59
Intake Total 0 / 0 0 / 0
Balance 0 / 0 0 / 0
Review of Systems
-
History Source: Patient
All other systems: Reviewed and negative
Physical Exam
-
General: Well Developed (Appears pale)
HEENT: Normocephalic
Respiratory: Clear to Auscultation
Cardiac: Regular Rhythm
GI: Soft, Nontender and Ostomy (Ileostomy intact with good output)
Rectal: Brown
Musculoskeletal: No Clubbing and Other (LUE with PICC )
Neuro: AO x 3
Psych: Calm
Data Reviewed
-
Diagnostic Radiology: Report Reviewed by me
Labs: Labs Reviewed by me
[2025-01-07] MEDS: ANCEF 10 IV (14:09)
--- NOTE | 2025-01-07 15:13 | CM ---
CM received consult of [employer], spoke with patients [facility] Pharmacist- cost roughly $35. Patient off floor, mother in room, discussed cost, agreeable. Patients mother reports patient will be discharging to their home for a few days, requesting meds to
be sent to [facility] in [place]. CM spoke with [facility], confirmed patient is current- [facility] referral sent in [facility]. CM will continue to follow for all discharge planning needs.
Plan; home with family, [facility]
[2025-01-07 15:59] VITALS: BP 117/70
[2025-01-07] MEDS: NSS 1000 IV (16:27)
--- NOTE | 2025-01-07 17:04 | W.PN.ONC2 ---
Today's Communication / Plan
-
To receive IV iron infusion, will start sc Lovenox treatment for LUE Venous Thrombus, follow up as outpatient with Dr. Pedro
Impression
Impression
Acute LUE Venous Thrombus
Anemia (h/o NÉSTOR, folate/b12/copper deficiency)
Plan
Plan
#Acute LUE Venous Thrombus (provoked)
- PICC line associated RUE Venous thrombus, seen on U/S. D-Dimer wnl
- PICC line remove, tip cultured pending results, new R sided PICC placed successfully
- To transition to sc Lovenox at treatment dose calculated 80mg for 12 weeks w/ follow up U/S recommended at 12 weeks. Will follow up with her manager video Dr. Pedro as outpatient
- Pain management as needed, elevation of the arm for relief
#Anemia (h/o NÉSTOR, Folate/B12 deficiency)
- B12 levels wnl, folate low
- To receive IV iron for iron deficiency, on folic acid supplementation
- Monitor hgb and transfuse if needed
- Will f/u as outpatient
Subjective/Objective
Chief Complaint
Acute LUE Venous Thrombus
Subjective
Feeling better after new PICC line placement. Is having some residual LUE pain, however it is overall improved. No other acute symptoms.
Vital Signs:
Vital Signs
Temp Pulse Resp BP Pulse Ox
98.2 F 79 12 117/70 100
01/07/25 15:59 01/07/25 15:59 01/07/25 15:59 01/07/25 15:59 01/07/25 15:59
Lab Results:
Laboratory Data
WBC 6.0 10^3/uL (4.8-10.8) 01/07/25 03:52
Hgb 10.3 g/dL (12.0-16.0) L 01/07/25 03:52
Plt Count 167 10^3/uL (130-400) 01/07/25 03:52
APTT 74.2 Sec (23.4-35.0) H 01/07/25 03:52
eGFR > 60.00 01/07/25 03:52
Physical Exam
HEENT: Moist Mucous Membranes
Cardiology: Normal Sinus Rhythm, S1 and S2
Pulmonary: Clear; No Wheezes, Rales or Rhonchi
GI: Soft and Normal Bowel Sounds
Extremities: No C/C/E
Review of Systems
Review of Systems
Constitutional: Denies Fever or Fatigue
Head: Denies Sore Throat or Hearing Loss
Respiratory: Denies Dyspnea or Cough
Cardiovascular: Denies Chest Pain or Palpitations
Gastrointestinal: Denies Nausea/Vomiting or Diarrhea
Genitourinary: Denies Hematuria
Skin: Denies Rash or Pruritis
Neurological: Denies Headache
[2025-01-07] MEDS: FOLVITE 50.2 MG IV (17:45)
[2025-01-07] MEDS: FERRLECIT 110 MG IV (18:03)
[2025-01-07] MEDS: LOVENOX 80 MG SC (18:03)
[2025-01-07] MEDS: ULTRAM 50 MG PO (21:42)
[2025-01-07 23:17] VITALS: BP 121/65
[2025-01-07] MEDS: FLUSH (NSS) 1 FLUSH IV (23:41)
[2025-01-08 05:57] LABS: Hematocrit 28.1 % (37.0-47.0); Hemoglobin 9.2 g/dL (12.0-16.0); Mean Corp Hgb Conc. 32.7 g/dL (33.0-37.0); Mean Corpuscular Hgb 29.9 pg (27.0-31.0); Mean Corpuscular Volume 91.2 fL (81.0-99.0); Mean Platelet Volume 11.2 fL (7.4-10.4); Platelet Count 164 10^3/uL (130-400); Red Blood Cell Count 3.08 10^6/uL (4.20-5.40); Red Cell Dist. Width 12.7 % (11.5-14.5); White Blood Cell Count 6.1 10^3/uL (4.8-10.8)
[2025-01-08 06:26] LABS: Blood Urea Nitrogen 19 mg/dl (7-17); Calcium 8.7 mg/dl (8.4-10.2); Carbon Dioxide 20 mmol/L (22-30); Chloride 106 mmol/L (98-107); Estimated Creatinine Clearance 100 ml/min; Glucose 86 mg/dl (70-99); Potassium 4.2 mmol/L (3.5-5.1); Sodium 135 mmol/L (135-145); eGFR > 60.00
[2025-01-08 07:15] VITALS: BP 98/52
[2025-01-08] MEDS: DILAUDID 0.25 MG IV (10:25)
--- NOTE | 2025-01-08 10:33 | W.PN.HOSP.TC ---
Today's Communication/Plan
-
OK for DC today
Assessment / Plan
Assessment / Plan
. Mohini LeePinoDorys is a 29 yo woman with hx ileostomy with multiple ileostomy revisions, hi output ileostomy receives IVF at home, chronic anemia, presents to the ER with left upper arm pain, found to have a DVT.
IMPRESSION: Occlusive thrombus within the left axillary vein, surrounding PICC line.
Nonocclusive thrombus within the proximal basilic vein with occlusive thrombus within the basilic vein in the midportion of the upper arm.
PICC related left arm occlusive thrombus in L axillary vein, proximal basilic vein and in midportion of arm
- Poor absorption of PO Meds due to high output ileostomy.
- s/p IV Heparin gtt now transitioned to subQ Lovenox - prescribe x 3 months; will get follow up US outpatient
- s/p PICC exchange by IR on 01/07/25
- appreciate Hematology
- continue pain LUE, will DC on Oxycodone; continued arm elevation
Chr condition:
HX spontaneous colon rupture status post ileostomy
HX gastroparesis
HX gastritis
HX chronic microcytic anemia likely due to iron malabsorption - IV iron - will give additional dose prior to discharge
HX folate deficiency - IV folate (2nd dose pre-discharge)
HX Migraine history status post vestibular nerve resection
Psoriatic arthritis
Chronic back pain
DVT Px: Heparin gtt
Full code
IP MS
Anticipated Discharge: Today
Subjective/Interval History
-
Date of Service: January 08, 2025
continues to have pain left arm
Objective Data
-
Labs:
Laboratory Results
01/08/25
05:26
WBC 6.1
Hgb 9.2 L
Hct 28.1 L
Plt Count 164
Sodium 135
Potassium 4.2
Chloride 106
Carbon Dioxide 20 L
BUN 19 H
Creatinine 0.5 L
Glucose 86
Calcium 8.7
Vital Signs:
Vital Signs
Temp Pulse Resp BP Pulse Ox
98.4 F 64 16 98/52 98
01/08/25 07:15 01/08/25 07:15 01/08/25 07:15 01/08/25 07:15 01/08/25 07:15
I&O
01/07/25 01/08/25 01/09/25
06:59 06:59 06:59
Intake Total 0 / 0 240 / 240
Balance 0 / 0 240 / 240
Review of Systems
-
History Source: Patient
All other systems: Reviewed and negative
Physical Exam
-
General: Well Developed and No Apparent Distress
HEENT: Normocephalic
Respiratory: Clear to Auscultation and Other (right central tunnelled catheter present with oozing on gauze )
Cardiac: Regular Rhythm and S1/S2
GI: Soft, Nontender and Ostomy (Ileostomy intact with good output)
Rectal: Brown
Musculoskeletal: No Clubbing and Other (LUE with PICC )
Neuro: AO x 3
Psych: Calm
Data Reviewed
-
Diagnostic Radiology: Report Reviewed by me
Labs: Labs Reviewed by me
--- NOTE | 2025-01-08 10:47 | W.DS.TRANS ---
DC Summary - [employer]
-
Discharge Instructions:
Discharge Diagnosis/Procedures Catheter related deep vein thrombosis of left
upper extremity; status post Tunneled Central
Venous Catheter placement on 01/07 with PICC
removal
Diet Regular
Activity As tolerated
Driving Restrictions As prior to admission
Instructions: Central line catheter insertion
How to care for a central line catheter
Stand-Alone Forms:
Changes to Home Medications: Yes
Discharge Medications:
DC Medications w/original date entered in [email or web address]
promethazine 12.5 mg tablet 12.5 mg PO Q6HPRN PRN nausea 12/29/22
sumatriptan succinate 100 mg tablet (Imitrex) 100 mg PO DAILYPRN PRN migraines 12/29/22
tramadol 50 mg tablet 50 mg PO Q6HPRN PRN breakthrough pain 12/29/22
Heparin 5 ml IV HS Blood Clot Prevention/Tx 02/16/24
rimegepant 75 mg disintegrating tablet (Nurtec ODT) 75 mg PO DAILYPRN PRN intense migraine 02/16/24
sodium chloride 0.9 % 1.5 l IV Q48H hydration 02/16/24
sodium chloride 0.9 % (flush) 10 ml IV HS iv liner inserter 02/16/24
simethicone 80 mg chewable tablet 80 mg PO DAILYPRN PRN gas 01/05/25
enoxaparin 80 mg/0.8 mL subcutaneous syringe 80 mg (0.8 mL) SC QPM #22.4 mL 01/08/25
Home Medication Changes
addition of Lovenox
Pending Results: No
[2025-01-08] MEDS: FOLVITE 50.2 MG IV (11:30)
--- NOTE | 2025-01-08 11:35 | CM ---
Addendum entered by Abby Llanes RN 01/08/25 15:08:
CM faxed RIght [facility]
Addendum entered by Abby Llanes RN 01/08/25 11:39:
CM updated [facility] with central venous access documentation.
Original Note:
Patient is medically ready for discharge to home with [facility]
PLAN: Home with [facility].
[facility]
[2025-01-08] MEDS: FERRLECIT 110 MG IV (12:08)
--- NOTE | 2025-01-08 14:21 | W.DCSUMMARY ---
Discharge Summary
Discharge Data
Date of Admission: 01/05/25
Date of Discharge: 01/08/25
-
Pending Results: No
Hospital Course
Discharging Physician : Dr. Jessica Pratt
Disposition : Home
Principal Discharge diagnosis : Catheter Associated left upper extremity deep vein thrombosis
Hospital Course :
Ms. 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
Triage vitals stable. US with evidence of DVT. She was started on IV Heparin gtt and admitted to medicine with Hematology consulting. Given anxiety with PICC exchange, IR consulted for placement with sedation. Decision made to place tunneled
central venous catheter given line maintenance need and history multiple PICC's in UE. Post procedure she was transitioned to Lovenox subQ (1.5mg/kg dosing per 24 hours). Unclear how well patient absorbs oral tablets, therefore parenteral medication
chosen. She is prescribed a 3 month course, will then need follow up ultrasound. She had significant discomfort from DVT and is prescribed a short course of Oxycodone on discharge.
She received two doses of IV Iron and IV Folate during hospitalization.
Time spent on discharge was 32 minutes
Important imaging findings :
LUE US
IMPRESSION: Occlusive thrombus within the left axillary vein, surrounding PICC line.
Nonocclusive thrombus within the proximal basilic vein with occlusive thrombus within the basilic vein in the midportion of the upper arm.
Procedure findings :
Discharge Plan
-
Patient Disposition: Home (Routine Discharge)
Discharge Diagnosis/Procedures: Catheter related deep vein thrombosis of left upper extremity; status post Tunneled Central Venous Catheter placement on 01/07 with PICC removal
Diet: Regular
Activity: As tolerated
Driving Restrictions: As prior to admission
Instructions: Central line catheter insertion, How to care for a central line catheter
Stand Alone Forms: Return to Work
Referrals:
Rashi Pedro MD [Non-Admitting Privileges] - (Follow up before 12 weeks)
UNKNOWN - PT DOES,NOT KNOW [Family Provider] -
Prescriptions:
New
enoxaparin 80 mg/0.8 mL Syringe
80 mg SC QPM Qty: 22.4 2RF
oxycodone 5 mg tablet
5 mg PO Q6HPRN PRN (Reason: severe pain) Qty: 20 0RF
Continued
sumatriptan succinate [Imitrex] 100 mg Tablet
100 mg PO DAILYPRN PRN (Reason: migraines)
promethazine 12.5 mg Tablet
12.5 mg PO Q6HPRN PRN (Reason: nausea)
tramadol 50 mg Tablet
50 mg PO Q6HPRN PRN (Reason: breakthrough pain)
sodium chloride 0.9 % (flush) Syringe
10 ml IV HS
Patient Comments:
01/05/25: for PICC care
Nurtec ODT 75 mg tablet,disintegrating
75 mg PO DAILYPRN PRN (Reason: intense migraine)
Heparin
5 ml IV HS
Patient Comments:
02/16/2024: for PICC care
sodium chloride 0.9 %
1.5 l IV Q48H
Patient Comments:
01/05/25: Infuse over 3 hours
simethicone 80 mg Tablet,Chewable
80 mg PO DAILYPRN PRN (Reason: gas)
Discharge Orders:
Discharge Patient (As Directed); Ordered 01/08/25
Ordered By: Jessica Pratt
Discharge Date and Time
Print Language: CZECH
== END 2025-01-08 15:47 | disposition home or self-care (01) | DRG 315 ==
LOC: 4 EAST ACU 23:18
PROVIDERS: Nurse Practitioner Acute Care; Physician Assistant; Radiology Vascular & Interventional Radiology; Registered Nurse; ADMITTING PHYSICIAN Internal Medicine; ATTENDING PHYSICIAN Student in an Organized Health Care Education/Training Program; CONSULT PHYSICIAN Internal Medicine Hematology & Oncology; EMERGENCY PHYSICIAN Emergency Medicine
PROC: 0JH63XZ Insertion of Tunneled Vascular Access Device into Chest Subcutaneous Tissue and Fascia, Percutaneous Approach (ICD-10-PCS; 2025-01-07)
PROC: 02HV33Z Insertion of Infusion Device into Superior Vena Cava, Percutaneous Approach (ICD-10-PCS; 2025-01-07)
DX: T82.868A Thrombosis due to vascular prosthetic devices, implants and grafts, initial encounter (principal); I82.A12 Acute embolism and thrombosis of left axillary vein; K90.829 Short bowel syndrome, unspecified; F42.9 Obsessive-compulsive disorder, unspecified; F41.9 Anxiety disorder, unspecified; L40.50 Arthropathic psoriasis, unspecified; D50.9 Iron deficiency anemia, unspecified; K31.84 Gastroparesis; Z93.2 Ileostomy status; Z79.899 Other long term (current) drug therapy; Y83.1 Surgical operation with implant of artificial internal device as the cause of abnormal reaction of the patient, or of later complication, without mention of misadventure at the time of the procedure; Y71.2 Prosthetic and other implants, materials and accessory cardiovascular devices associated with adverse incidents
CPT/HCPCS: 36558; 71046; 76937; 77001; 80048; 80053; 82607; 82728; 82746; 83540; 83550; 83735; 84703; 85025; 85027; 85045; 85379; 85730; 87084; 93971; 96365; 99152; 99285; C1751; J2916

== ENCOUNTER 2025-08-26 01:37 | Inpatient (IN) | payer OTHER, SELFPAY ==
[2025-08-25] VITALS (9 sets, daily range): BP systolic 100–123; BP diastolic 53–73; BMI 22.6
--- NOTE | 2025-08-25 18:55 | ED.GENMED ---
History of Present Illness
General
Chief Complaint: Abnormal Lab Value
Source: patient and family (Mother)
Time Seen by Provider: 08/25/25 18:21
History of Present Illness
History of Present Illness:
30-year-old female presents to the emergency room complaining of left upper abdominal pain rating to her left back. Patient has a complex medical history primarily surrounding short gut syndrome. She had a idiopathic perforation of her colon which
resulted in an ileostomy and many revisions. She has iron deficiency anemia thought to be related to poor absorption related to her short gut. She has a right sided tunneled central venous catheter that was placed here during a hospitalization in
December. At that point she had a upper extremity DVT secondary to a PICC line. She had been on Lovenox. Recently the patient has been experiencing dramatic drops in her hemoglobin necessitating transfusions. She has had 6 transfusions of packed
red blood cells over the past few weeks. Most of her care was obtained down at the hospital of the [facility]. She was scheduled for transfusion today but because her left upper abdominal pain she was told to come to the close her
emergency room. As part of her workup for this increased blood loss she has had a capsule endoscopy which she completed yesterday or 2 days ago. She was told results would take 2 weeks. Patient does not typically have chronic abdominal pain. She
does take tramadol more for joint pain related to rheumatologic disease. Patient had been receiving iron infusions but recently has been developing a rash with those. The left upper abdominal pain is made worse with movement and deep inspiration.
Past History
Past History
ED Past Medical History: Psychiatric (anxietym OCD), Other (Peptic ulcer disease, hemochromatosis, volvulus, psoriasis, IBS, Anemia, Ulcers) and Other
ED Past Surgical History: Other (coloectomy and multiple iliostomy revisions X 5, Bilateral occipital nerve disection)
Social History
Tobacco: Non-smoker
Alcohol: Occasional
Personal: Single
Living: with family
Employment: Employed
Phy Exam
Physical Exam
Physical Exam:
General: Awake, Alert, Oriented X3. No acute distress but appears to wince with discomfort at times
Vitals: unremarkable
Head: Atraumatic
Eyes: Pupils equal, EOMI
Throat: Airway intact, no exudates, mildly dry mucosa
Neck: Trachea midline
Lungs: Clear and equal b/l
Heart: Regular rate, no murmurs
Abd: Soft, ileostomy noted, tender to palpation left upper quadrant, No pulsatile mass
Neuro: Nonfocal
Skin: Warm, dry, no rash
Extremities: pulses equal b/l, no edema
Course
Orders/Labs/Results
Orders:
Orders
08/25/25 18:35
Chest X-ray Portable [CR Chest Portable - 1 View] Urgent
Comment:
Reason For Exam: central line placement
Reason Study Needs to be Portable: Unable to Transport
08/25/25 18:53
Urinalysis Reflex To Culture Urgent
Date Specimen was Collected: 08/26/25
Time Specimen was Collected: 00:10
HYDROmorphone [Dilaudid] 0.5 mg IV NOW STA
Iohexol [Omnipaque] See Protocol PO NOW STA
Ondansetron Injectable [Zofran] 4 mg IV NOW STA
08/25/25 18:54
CT Abd/pel W Iv And Oral Contr Urgent
Comment:
Reason For Exam: luq abd pain
Test Result ONCE
08/25/25 19:28
Complete Blood Count/With Diff Urgent
Comprehensive Metabolic Panel Urgent
HCG, Serum Qualitative Screen Urgent
Lipase Urgent
08/25/25 20:47
Type And Crossmatch [Type+Screen] Urgent
08/25/25 20:53
HYDROmorphone [Dilaudid] 1 mg IV NOW STA
08/25/25 21:13
Promethazine [Phenergan] 25 mg IM NOW STA
08/26/25 01:11
Admit/Transfer Patient As Directed
Co-Sign Provider:
Level of Care: Inpatient admission
Assign to:: Medical/Surgical
Physician / Group: Hospitalist
Diagnosis: Anemia
Reason for Hospitalization: Transfuse PRBCs, IV pain control
Expected length of stay greater than two midnights?: Yes
ELOS- Estimated Length of Stay in days: 3
I certify the patient meets the requirements for IP care: Yes
08/26/25 01:16
Code Status As Directed
Resuscitation Status: Full Code
08/26/25 01:44
HYDROmorphone [Dilaudid] 0.5 mg IV Q3HPRN PRN
Promethazine [Phenergan] 25 mg IM Q4HPRN PRN
Tramadol HCl [Ultram] 50 mg PO Q6HPRN PRN
08/26/25 01:51
Consult Notification Routine
Specialty to Notify: Gastroenterology
Date consulting provider notified: 08/26/25
Time consulting provider notified: 10:51
Notified:: Service
GASTROINTESTINAL CONSULT Routine
Consulting Provider: Otilio Chun
Was physician already notified: No
Reason for consult: possible GI bleed, Abdominal pain.
Pneumatic Compression Sleeves As Directed
Type: Knee high
DX Deep Vein Thrombosis Video Routine
08/26/25 02:00
Flush (0.9% Sodium Chloride) [Flush (Nss)] 1 flush IV PER PROTOCOL
08/26/25 02:57
H&H Q8H
08/26/25 06:00
EKG [Electrocardiogram (*1)] IN AM
Reason for Study: QTc Monitoring
08/26/25 08:00
Pantoprazole [Protonix IV] 40 mg IV BID
Sulfadiazine (Non-Form) [Sulfadiazine] 1,000 mg PO TID
08/26/25 10:02
H&H Q8H
08/26/25 18:20
H&H Q8H
08/26/25 22:00
Famotidine [Pepcid] 20 mg IV HS
Abnormal Lab Results
08/25/25 08/25/25
19:28 20:47
RBC 2.36 L 10^6/uL
(4.20-5.40)
Hgb 7.0 L g/dL
(12.0-16.0)
Hct 22.4 L %
(37.0-47.0)
MCHC 31.3 L g/dL
(33.0-37.0)
RDW 18.9 H %
(11.5-14.5)
MPV 11.5 H fL
(7.4-10.4)
Abs Immat Gran (auto) 0.1 H 10^3/uL
(0-0.05)
Immature Gran % 1.2 H %
(0-0.5)
Sodium 130 L mmol/L
(135-145)
Chloride 110 H mmol/L
(98-107)
Carbon Dioxide 17 L mmol/L
(22-30)
Creatinine 0.4 L mg/dL
(0.6-1.0)
Glucose 116 H mg/dl
(70-99)
Alkaline Phosphatase 35 L U/L
(38-126)
Total Protein 5.7 L g/dl
(6.3-8.2)
Albumin 3.4 L g/dl
(3.5-5.0)
Crossmatch IS Only See Detail
08/25/25 19:28
08/25/25 19:28
Vital Signs
Initial and Last Documented VS:
Initial Vital Signs
Temp Pulse Resp BP Pulse Ox
98.2 F 108 21 123/73 100
08/25/25 17:21 08/25/25 17:21 08/25/25 17:21 08/25/25 17:21 08/25/25 17:21
Last Documented Vital Signs
Temp Pulse Resp BP Pulse Ox
97.9 F 81 14 94/58 100
08/26/25 17:00 08/26/25 17:00 08/26/25 17:00 08/26/25 17:00 08/26/25 17:00
MDM/Problems Addressed
Differential Diagnosis Includes:
gastritis, pud, sbo, colitis,
MDM/Problems Addressed:
Patient with a very complex history of abdominal surgeries, short gut and malabsorption presents complaining of low hemoglobin, left upper quadrant abdominal pain rating to her back, dizziness. Workup here reveals anemia with a hemoglobin of 7.
The rest of her labs are actually fairly stable. Her bicarb is low but she does not have an anion gap. Pain improved with analgesia here but continues. Imaging shows no acute abnormality. Patient will be hospitalized for analgesia, perhaps GI
evaluation.
*Pulse Oximetry
SaO2: 100
Oxygen Mode of Delivery: Room air
Patient hypoxic: no
*Critical Care Note
Total Time (30-74mins, 75-104mins- exclusive of procedures): Not Applicable
ED Attending Note
-
Portions of this chart may have been created with voice recognition software.� Occasional wrong word or��sound alike� substitutions may have occurred due to the inherent limitations of voice recognition software.
Discharge Plan
Departure
Patient Disposition: Admit
Date of Disposition: 08/25/25
Time of Disposition: 23:34
Admit to: Med/Surg
Presentation/result/management discussed w/ accepting MD/DO: Hospitalist
Condition: Fair
Discharge Problem:
Symptomatic anemia, Abdominal pain
Interventions
Interventions:
*Risk Screen - Suicide Last Done: 08/25/25 17:21
*General Assessment Last Done: 08/25/25 17:21
*Neglect/Abuse Screening Last Done: 08/25/25 17:21
*ED- Fall Risk Assessment Last Done: 08/25/25 18:29
*ED COVID-19 Vaccine History Last Done: 08/25/25 18:29
*ED Influenza Vaccine History Last Done: 08/25/25 18:29
[2025-08-25] MEDS: DILAUDID 0.5 MG IV (19:32)
[2025-08-25] MEDS: ZOFRAN 4 MG IV (19:33)
[2025-08-25] MEDS: OMNIPAQUE 50 ML PO (19:39)
[2025-08-25 19:45] LABS: Hematocrit 22.4 % (37.0-47.0); Hemoglobin 7.0 g/dL (12.0-16.0); Mean Corp Hgb Conc. 31.3 g/dL (33.0-37.0); Mean Corpuscular Volume 94.9 fL (81.0-99.0); Nucleated Red Blood Cells % 0 %; Platelet Count 230 10^3/uL (130-400); Red Cell Dist. Width 18.9 % (11.5-14.5)
[2025-08-25 19:57] LABS: HCG, Serum Qualitative Screen Negative
[2025-08-25 20:03] LABS: ALT (SGPT) 31 U/L (0-35); AST (SGOT) 23 U/L (14-36); Albumin 3.4 g/dl (3.5-5.0); Alkaline Phosphatase 35 U/L (38-126); Blood Urea Nitrogen 9 mg/dl (7-17); Calcium 8.6 mg/dl (8.4-10.2); Carbon Dioxide 17 mmol/L (22-30); Chloride 110 mmol/L (98-107); Estimated Creatinine Clearance 99 ml/min; Glucose 116 mg/dl (70-99); Lipase 97 U/L (23-300); Potassium 3.9 mmol/L (3.5-5.1); Sodium 130 mmol/L (135-145); Total Protein 5.7 g/dl (6.3-8.2); eGFR > 60.00
[2025-08-25] MEDS: DILAUDID 1 MG IV (21:15)
[2025-08-26] VITALS (20 sets, daily range): BP systolic 12–128; BP diastolic 52–74; BMI 21.5
[2025-08-26 00:44] LABS: Urine Character Clear (Clear)
--- NOTE | 2025-08-26 00:47 | HPS.HSE ---
Family Physician
-
Family Physician: MERCY ALVAREZ
Chief Complaint
-
Abnormal lab value
History of Present Illness
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
ileosigmoid anastomosis stent sigmoid volvulus status post colectomy with end ileostomy with additional complications of ileostomy prolapses requiring revision and small bowel resection, ileal volvulus requiring ileal revision and a new end
ileostomy creation, high output ileostomy who presents to the emergency department with low blood count.
Patient has been having evidence of decrease in hemoglobin for the last month. Hemoglobin was 8 in the beginning of July went down to as low as 5.3 on August 04. She has been getting multiple transfusions. She had capsule endoscopy performed
with results pending. Patient states that she usually has abdominal pain related to intermittent obstructions, pseudoobstruction's and gastritis and she generally manages well at home with a pain level up to 6 but after that she is requested to
come to the emergency department for evaluation. Patient states that she has been having nausea and some vomiting and the emesis last time but more murky but not bilious. She reports that her output from the ileostomy has also turned slightly
darker. Dental Patient Coordinator as planned for an EGD and states that it is pending in September. She denies any NSAIDs. She denies any blood thinners.
On arrival in the emergency department she was afebrile, blood pressure was 114/61 pulse of 81 and she was satting 98% on room air. CBC notable for hemoglobin of 7.0 with normal white platelet count. Electrolytes show a sodium of 130 and a bicarb
of 17 with normal BUN and creatinine and a glucose of 116. CT of the abdomen pelvis showing Mild diffuse ileal small bowel distention. Previous subtotal colectomy and right anterior abdominal wall ileostomy. Mild gallbladder distention. Mild to
moderate urinary bladder distention.
Medical History
Past Medical History
Past Medical History: Reports Other (spontaneous colon rupture at age 20 status post ileostomy, multiple ileostomy revisions,, high output ileostomy, gastroparesis, gastritis, chronic anemia/iron deficiency anemia, migraines status post occipital
nerve resection, psoriatic arthritis, chronic back pain)
Past Surgical History: Reports Other (ileostomy, multiple ileostomy revisions, occipital nerve resection)
Social History
Tobacco: Non-smoker
Alcohol: None
Drug: None
Family History
Family History: Not pertinent
Allergies / Home Medications
Allergies reflects when Allergies were last updated in [facility].
Home Medications with original date entered in [facility]
Allergy/Medication List:
Allergies
Allergy/AdvReac Type Severity Reaction Status Date / Time
latex Allergy Itching Verified 02/16/24 11:48
prednisone Allergy Unknown Verified 02/16/24 11:48
Home Medications
lansoprazole 30 mg capsule,delayed release 30 mg PO BID 12/29/22
promethazine 12.5 mg tablet 25 mg PO Q6H PRN nausea 12/29/22
sumatriptan succinate 100 mg tablet (Imitrex) 250 mg PO PRN PRN migraines 12/29/22
tramadol 50 mg tablet 50 mg PO Q6H PRN breakthrough pain 12/29/22
Heparin 5 ml IV HS 02/16/24
folic acid 1 ml PO BID 02/16/24
rimegepant 75 mg disintegrating tablet (Nurtec ODT) 75 mg PO DAILY PRN intense migraine 02/16/24
sodium chloride 0.9 % 1.5 l IV Q48H 02/16/24
sodium chloride 0.9 % (flush) 10 ml IV HS 02/16/24
sumatriptan succinate 6 mg/0.5 mL subcutaneous pen injector 6 mg SC DAILY PRN intense migraine 02/16/24
Review of Systems
-
Constitutional: Reports No Symptoms
EENT: Reports No Symptoms
Respiratory: Reports No Symptoms
Cardiac: Reports No Symptoms
Abdomen/GI: Reports Abdominal Pain, Nausea and Vomiting
: Reports No Symptoms
Musculoskeletal: Reports No Symptoms
Skin: Reports No Symptoms
Neurological: Reports No Symptoms
Endocrine: Reports No Symptoms
Hematologic/Lymphatic: Reports No Symptoms
Psych: Reports No Symptoms
Physical Exam
Vital Signs
Vital Signs
Temp Pulse Resp BP Pulse Ox
97.7 F 81 18 114/61 100
08/26/25 00:00 08/26/25 00:00 08/26/25 00:00 08/26/25 00:00 08/26/25 00:00
Physical Exam
General: Well Developed, Well Nourished and No Apparent Distress
HEENT: NormoCephalic, Moist mucous membranes and Atraumatic
Respiratory: Clear
Cardiac: S1/S2 and Regular Rhythm; No Murmur or Rub
GI: Soft, Non Tender, Non Distended and Normal Bowel Sounds; No Organomegaly
Rectal: Deferred by Provider
Musculoskeletal: No Clubbing, No Cyanosis and No Edema
Skin: No Rash
Neuro: Nonfocal/grossly intact
Laboratory Results
-
08/25/25 19:28
08/25/25 19:28
Laboratory Results
Total Bilirubin 0.5 mg/dl (0.2-1.3) 08/25/25 19:28
AST 23 U/L (14-36) 08/25/25 19:28
ALT 31 U/L (0-35) 08/25/25 19:28
Alkaline Phosphatase 35 U/L (38-126) L 08/25/25 19:28
Lipase 97 U/L (23-300) 08/25/25 19:28
Data Reviewed
-
CT Scan: Report Reviewed by me
Lab Data: Labs Reviewed by me
Old Records: Reviewed
Impression/Plan
-
IMPRESSION:
Patient is a 30-year-old with extensive past medical history that initially started with colonic initiation with spontaneous perforation requiring ileosigmoid anastomosis now complicated with multiple issues with ultimately now having new end
ileostomy creation and short gut syndrome and high output ileostomy, recent decrease in hemoglobin of unknown etiology status post capsule endoscopy with results pending, status post multiple transfusion and iron infusions will presents to the
emergency department with dizziness and abdominal discomfort found to have hemoglobin of 7. Per recent evaluation she had no gross bleeding and has been having vague left-sided abdominal pain exacerbated by eating at least since July. The CT of
the abdomen shows no significant acute findings. No SBO.
PLAN:
Anemia -hemoglobin 7, recent capsule endoscopy with results pending, no evidence of acute bleeding at this time.
[facility]
-Transfuse 1 unit packed red blood cells
-Trend H&H every 8 hours for now
-GI consultation
Abdominal pain -no obvious etiology. There is no obvious small bowel obstruction at this time. Chronic high output ileostomy. Pain also appears to be subacute to chronic ongoing since at least July and associated with oral intake. Plan was to
start GLP 2.
- Pain control antiemetic (promethazine IM, IV dilaudid, prn tramadol for mild pain)
-PPI IV twice daily
-Famotidine and at bedtime
-Clear liquid diet
-GI consultation
Psoriatic arthritis
- Continue sulfasalazine 1 g 3 times daily
DVT prophylaxis�SCDs for now
CODE STATUS full code
[2025-08-26] MEDS: DILAUDID 0.5 MG IV (02:15)
[2025-08-26 03:10] LABS: Hematocrit 25.5 % (37.0-47.0); Hemoglobin 8.2 g/dL (12.0-16.0)
[2025-08-26] MEDS: DILAUDID 0.25 MG IV (03:26)
[2025-08-26] MEDS: ULTRAM 50 MG PO (04:44)
[2025-08-26] MEDS: PHENERGAN 25 MG IM (05:14)
[2025-08-26] MEDS: DILAUDID IV (06:28)
[2025-08-26] MEDS: DILAUDID 1 MG IV ×4 (06:30→20:00)
--- NOTE | 2025-08-26 08:47 | W.PN.HOSP.TC ---
Today's Communication/Plan
-
see PN
Assessment / Plan
Assessment / Plan
30yo F with PMHx of bowel perforation in 2014 with subtotal colectomy, stoma in 2018 then x5 due to necrosis and dysfunction, HX of short bowel syndrome, high output ostomy on weekly IVF, chronic anemia s/p recent capsule endoscopy, planned for EGD
at the end of Aug in [facility], where is her GI care, GERD, Hx of PUD came with 6 weeks of worsening LUQ abd pain to the point that she could not tolerate it. Found worsening chronic anemia
A/P:
#Chronic anemia
extensive w/u in [facility] by [employer] and GI, recent capsule endoscopy, pending results
Unclear cause
s/p 1 unit PRBC this admission, had total of 7 units of blood transfusion over past 6 weeks
#LUQ abd pain
Lipase and LFT WNL
CT abd: mild diffuse small bowel distension, mild gall bladder and urinary bladder distension
GI consult
Pain mgmt: discussed careful consideration for opioid analgetics, since PMHx of SBO 2/2 imodium
food hels with pain - advance as per GI
#Hepatic cyst
no follow up advised
#Hyponatremia
2/2 high output ostomy
IVF PRN
already arranged at home
DVT ppx SCDs
Full code
I have spent at least 58min reviewing chart, test results, communication woith consultants and providing direct patient care
Anticipated Discharge: Within 24 hours
Subjective/Interval History
-
Date of Service: August 26, 2025
Objective Data
-
Labs:
Laboratory Results
08/26/25 08/26/25 08/26/25
02:57 09:51 17:51
Hgb 8.2 L Pending Pending
Hct 25.5 L Pending Pending
Vital Signs:
Vital Signs
Temp Pulse Resp BP Pulse Ox
97.8 F 89 19 113/62 100
08/26/25 01:16 08/26/25 03:15 08/26/25 03:15 08/26/25 02:45 08/26/25 01:16
I&O
08/25/25 08/26/25 08/27/25
06:59 06:59 06:59
Intake Total 490 / 490
Balance 490 / 490
Review of Systems
-
History Source: Patient
All other systems: Reviewed and negative
Abdomen/GI: Reports Abdominal Pain
Physical Exam
-
General: No Apparent Distress
HEENT: Normocephalic
Respiratory: Clear to Auscultation
Cardiac: Regular Rhythm
GI: Soft, Nondistended, Tender (point tenderness epigastric region) and Ostomy
Neuro: Awake, Alert, Oriented and AO x 3
Psych: Calm
[2025-08-26] MEDS: AZULFIDINE 1000 MG PO ×3 (09:35→22:27)
[2025-08-26] MEDS: PROTONIX IV 40 MG IV ×2 (09:36→20:01)
[2025-08-26] MEDS: NSS (PRESERVATIVE FREE) 10 ML IV ×2 (09:39→20:01)
[2025-08-26 10:14] LABS: Hematocrit 27.9 % (37.0-47.0); Hemoglobin 8.5 g/dL (12.0-16.0)
--- NOTE | 2025-08-26 11:43 | CON.GI ---
Addendum entered and electronically signed by Otilio Chun MD 08/26/25 15:10:
I saw and examined the patient.
The PA's note was reviewed and I agree with the note.
Comment:
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
ileostomy presenting with acute on subacute/chronic abdominal pain and low Hgb.
Impression / Rec:
1. Abdominal pain - the etiology is unclear. Her pain seems chronic, as she had EGD in 09/2022 at [facility] for same indication (LUQ abdo pain), which showed segmental severe inflammation characterized by serpentine ulcerations in gastric antrum. She
denies NSAID use. No persistent vomiting. CT abd on admission was non-diagnostic. She has OP EGD scheduled and we discussed proceeding with EGD now for evaluation. Will plan for EGD today.
2. Anemia - she and her mother denies overt signs of GI bleeding. Had CE few days ago at [facility], report/result pending. Hgb on admission at 7, 1 unit of pRBC give with appropriate response. Hgb remains stable. Monitor for now. Minimal concern
for GI bleed at this time.
Original Note:
Consultation
-
Date/Time Consultation Requested: 08/26/25 1:51
Date/Time Consultation Performed: 08/26/25 10:00
Requesting Provider: Connie Valle
Performing Provider: Dr. Otilio Chun
Reason for Consultation: possible GI bleed, abdominal pain
Medical History
Chief Complaint / HPI
Chief Complaint: abdominal pain and low hgb
History of Present Illness:
30yoF PMH psoriatic arthritis, PCOS, extensive GI hx including subtotal colectomy 2014, sigmoid volvulus and complete colectomy 2018, ileostomy prolapse, revision 2018 and 2019, high output from ileostomy presenting with acute on subacute/chronic
abdominal pain and low Hgb.
Since end of June, Mohini explains having symtpoms of low Hgb imcluding dizziness and lightheadedness with standing too fast, KELLY, black spots in her vision. She was admitted to [facility] 08/06/[address] that was unremarkable. She
describes the commencement of the abdominal pain at that time, but it was manageable on her home pain regimen of tramadol. The pain has reportedly gotten progressivley worse until tomorrow when it was unbearable, prompting her presentation. She has
been followed outpt by her [facility] Dr. Hill and a screen printing machine operator trying to find source of her anemia. After iron infusions, her ferritin has been repleted and reticulocytes increased appropriately. Hemolytic work up has been negative. She has
regular, short periods unrelated timeline to recent anemia. Her Hg has fluctuated from 8.6 down to 6.1 outpt; she has receive reportedly up to 7 transfusions in the last month. She had a capsule endoscopy this past week and scheduled EGD in September
with her [facility] Dr. Hill.
Pt describes LUQ shooting pain that intermittently gets worse with referred, stabbing pain in her L shoulder. She also described sore throat and substernal/GERD-like pain. She has hx of PUD with similar symptoms. She reports worsening of symptoms
with food, causing anorexia over the last few weeks. Denies NSAIDs, steroids, alcohol use, tobacco use. Reports adequate urination without pain. Pt reports some radiation down from LUQ but no groin radiation. No hx nephrolithiasis. Prior H pylori
studies have been negative. Pt reports GERD symptoms on a PPI since she was about 13 years old, but her GERD has been described to be significantly worse. She has vomited once since being in the ED with continued reflux and dry heaving. She is able
to keep down some fluids. Pt reports baseline abdominal pain with her extensive GI hx but this pain feels worse, almost as bad as what she described the volvulus felt like. She rates this pain as 8/10 with volvulus being 10/10. She reports
appropriate output of her ostomy with fluids and gas. Denies jia blood or melena in her stool or emesis. Denies immunosuppressive agents. On sulfasalazine for psoriatic arthritis.
Received bolus saline every other day 1.5L NS for high ostomy output at baseline.
Past Medical History
Past Medical History: Other (psoriatic arthritis, PCOS, )
Past Surgical History: Bowel Resection (multiple ileostomy revisions, total colectomy after subtotal, volvulus)
Social History
Tobacco: Non-Smoker
Alcohol: None
Drug: None
Personal: Single
Living: Alone
Employment: Employed (on short term disability due to current symptoms)
Allergies / Home Medications
Allergy/AdvReac Type Severity Reaction Status Date / Time
latex Allergy Itching Verified 01/05/25 18:50
prednisone Allergy Unknown Verified 01/05/25 18:50
�Medication �Instructions �Recorded
promethazine 12.5 mg tablet 25 mg PO Q6HPRN PRN nausea 12/29/22
sumatriptan succinate 100 mg 100 mg PO DAILYPRN PRN migraines 12/29/22
tablet (Imitrex)
tramadol 50 mg tablet 50 mg PO Q6HPRN PRN breakthrough 12/29/22
pain
sodium chloride 0.9 % (flush) 10 ml IV HS iv back line cook 02/16/24
simethicone 80 mg chewable tablet 80 mg PO DAILYPRN PRN gas 01/05/25
cyclobenzaprine 10 mg tablet 10 mg PO HS PRN prn 08/26/25
dexlansoprazole 30 mg 30 mg PO DAILY 08/26/25
capsule,biphase delayed release
sulfasalazine 500 mg tablet 1,000 mg PO BID 08/26/25
Review of Systems
-
History Source: Patient
All other systems: A 12 pt ROS was Negative except as stated above in HPI
EENT: Reports Sore Throat
Abdomen/GI: Reports Abdominal Pain, Nausea, Vomiting, Anorexia and Pain; Denies Bloody Stools or Black Stools
: Reports No Symptoms
Neurological: Reports Dizzy and Weakness; Denies Headache or Numbness
Endocrine: Reports No Symptoms
Vital Signs
Temp Pulse Resp BP Pulse Ox
98.1 F 97 20 128/74 100
08/26/25 10:55 08/26/25 10:55 08/26/25 10:55 08/26/25 10:55 08/26/25 10:55
Physical Exam
Exam
General: Pain and Poor Appetite
HEENT: Normocephalic, Anicteric and Moist Mucous Membranes
Respiratory: Clear and Non Labored Respirations
Cardiac: S1/S2 and Regular Rhythm
GI: Soft, Non Distended, Tender (LUQ and around to her back) and Other (ostomy)
Genito-urinary: No Costovertebral Tender (contiguous pain from abdomen on L side, no overt CVA tenderness)
Skin: Warm and Dry
Neuro: AO x 3 and Nonfocal/Grossly Intact
Results
WBC 6.9 10^3/uL (4.8-10.8) 08/25/25 19:28
Hgb 8.5 g/dL (12.0-16.0) L 08/26/25 10:02
Hct 27.9 % (37.0-47.0) L 08/26/25 10:02
MCV 94.9 fL (81.0-99.0) 08/25/25 19:28
Plt Count 230 10^3/uL (130-400) 08/25/25 19:28
Absolute Neuts (auto) 4.6 10^3/uL (1.4-6.5) 08/25/25 19:28
Sodium 130 mmol/L (135-145) L 08/25/25 19:28
Potassium 3.9 mmol/L (3.5-5.1) 08/25/25 19:28
Chloride 110 mmol/L (98-107) H 08/25/25 19:28
Carbon Dioxide 17 mmol/L (22-30) L 08/25/25 19:28
BUN 9 mg/dl (7-17) 08/25/25 19:28
Creatinine 0.4 mg/dL (0.6-1.0) L 08/25/25:
Calcium 8.6 mg/dl (8.4-10.2) 08/25/25 19:
Total Bilirubin 0.5 mg/dl (0.2-1.3) 08/25/25 19:
AST 23 U/L (14-36) 08/25/25 19:
ALT 31 U/L (0-35) 08/25/25 19:
Alkaline Phosphatase 35 U/L (38-126) L 08/25/25:
Lipase 97 U/L (23-300) 08/25/25 19:
Diagnostic Image Results:
CT
1. Mild diffuse ileal small bowel distention.
2. Previous subtotal colectomy and right anterior abdominal wall ileostomy.
3. 1.5 cm corpus luteal cyst in the left ovary.
4. Mild gallbladder distention.
5. Mild to moderate urinary bladder distention.
Prior GI Procedures:
Prior scopes at [facility]
Findings include gastritis 10/2023
Patchy plaques in esophagus 2021
EGD:
Colonoscopy:
Assessment / Plan
-
30yoF PMH psoriatic arthritis, PCOS, extensive GI hx including PUD 2019, subtotal colectomy 2014, sigmoid volvulus and complete colectomy 2017, ileostomy prolapse, revision 2017 and 2019, high output from ileostomy presenting with acute on
subacute/chronic abdominal pain and low Hgb.
AFVSS. Pt is hemodynamically stable with Hg 8.5 s/p 1 unit. Pt describes radiating LUQ pain similar to prior episodes of ulcers that get worse with eating. She also has throat pain and nausea with prior hx of possible esophageal plaques. She has an
extensive GI hx. Last EGD performed 10/2023. Capsule endoscopy this past week with plan of EGD in September outpt. Subacute symptoms of normocytic anemia with progressive abdominal pain no longer manageable on home pain regimen. Pt stated she is
unable to wait until to September due to the increased severity of symptoms at given time of abdominal pain, nausea, dry heaving. Symptoms could be due to recurrence of PUD; no recent triggers, denying alcohol, tobacco, NSAIDs, steroid use. Plan for
EGD to further investigate acute worsening of abdominal pain and possibly cause of low Hg.
#anorexia
#postprandial abdominal pain
#normocytic anemia
#throat pain
#GERD
- Plan for EGD today
- NPO
- Maintenance fluids started
- Pt normally receives bolus of 1.5L NS every other day due to high output ostomy. Can give bolus if needed. Monitor hemodynamics.
- Tranfuse hg<7
-
-
Thank you for consultation and allowing me to participate in the patient's care. Please call the financial reporting consultant GI physician during the after hours with any questions or concerns.
--- NOTE | 2025-08-26 12:03 | CM ---
Chart received and spoke with patient at ED bedside
Lives alone in [place] [facility] and parents live in [place]
Has a central line active with [facility]
Sees her doctors in [facility] in the city
PCP Dr. Lexus Smith in [facility]
RX plan yes
Pharmacy [facility] in [facility]
hx of [facility]
no hx of SNF
DCP is to return home with [facility]
CM will continue to follow up for any dcp needs
[2025-08-26] MEDS: PHENERGAN 51 MG IV (12:53)
[2025-08-26] MEDS: NSS 1000 IV ×2 (12:54→18:37)
[2025-08-26] MEDS: ZOFRAN 4 MG IV (16:19)
[2025-08-26] MEDS: SUBLIMAZE 50 MCG IV ×2 (16:20→16:40)
[2025-08-26] MEDS: FLUSH (NSS) 1 FLUSH IV (18:37)
[2025-08-26 18:56] LABS: Hematocrit 24.8 % (37.0-47.0); Hemoglobin 7.9 g/dL (12.0-16.0)
[2025-08-26] MEDS: NSS (PRESERVATIVE FREE) 8 ML IV (22:27)
[2025-08-26] MEDS: PEPCID 20 MG IV (22:28)
[2025-08-27] MEDS: NSS 1000 IV ×5 (04:45→19:32)
[2025-08-27] MEDS: DILAUDID 1 MG IV ×5 (04:46→21:40)
[2025-08-27 07:00] VITALS: BP 98/55
[2025-08-27] MEDS: NSS (PRESERVATIVE FREE) 10 ML IV ×2 (09:34→19:28)
[2025-08-27] MEDS: PROTONIX IV 40 MG IV ×2 (09:35→19:28)
[2025-08-27] MEDS: AZULFIDINE 1000 MG PO ×3 (09:36→21:32)
--- NOTE | 2025-08-27 10:28 | W.PN.HOSP.TC ---
Today's Communication/Plan
-
GI follow up
Bolus
H&H afterwards
then possible d/c
Assessment / Plan
Assessment / Plan
30yo F with PMHx of bowel perforation in 2015 with subtotal colectomy, stoma in 2018 then x5 due to necrosis and dysfunction, HX of short bowel syndrome, high output ostomy on weekly IVF, chronic anemia s/p recent capsule endoscopy, planned for EGD
at the end of Aug in [facility], where is her GI care, GERD, Hx of PUD came with 6 weeks of worsening LUQ abd pain to the point that she could not tolerate it. Found worsening chronic anemia. s/p EGD on 08/26/25 with suspicion for eosinophilic
esophagitis, non-bleeding Miguel class III gastric ulcer. Advised to keep existent GI appt as outpatient ad increased PPI. 3L Ostomy output overnight - replete NS bolus. H&H afterwards
A/P:
#Chronic anemia
#PUD
extensive w/u in [facility] by [employer] and GI, recent capsule endoscopy, pending results
Unclear cause
s/p 1 unit PRBC this admission, had total of 7 units of blood transfusion over past 6 weeks
#LUQ abd pain
Lipase and LFT WNL
CT abd: mild diffuse small bowel distension, mild gall bladder and urinary bladder distension
GI consult
Pain mgmt: discussed careful consideration for opioid analgetics, since PMHx of SBO 2/2 imodium
food hels with pain - advance as per GI
#Hepatic cyst
no follow up advised
#Hyponatremia
2/2 high output ostomy
IVF PRN
already arranged at home
DVT ppx SCDs
Full code
I have spent at least 58min reviewing chart, test results, communication woith consultants and providing direct patient care
Anticipated Discharge: Within 24 hours
Subjective/Interval History
-
Date of Service: August 27, 2025
Objective Data
-
Vital Signs:
Vital Signs
Temp Pulse Resp BP Pulse Ox
98.5 F 93 16 98/55 100
08/27/25 07:00 08/27/25 07:00 08/27/25 07:00 08/27/25 07:00 08/27/25 07:00
I&O
08/26/25 08/27/25 08/28/25
06:59 06:59 06:59
Intake Total 490 / 490 960 / 1440 480 / 480
Balance 490 / 490 960 / 1440 480 / 480
Review of Systems
-
History Source: Patient
All other systems: Reviewed and negative
Abdomen/GI: Reports Abdominal Pain (LUQ)
Physical Exam
-
General: No Apparent Distress
HEENT: Normocephalic
Respiratory: Clear to Auscultation
GI: Soft, Nondistended, Tender (epigastrium) and Ostomy
Neuro: Awake, Alert, Oriented and AO x 3
Psych: Calm
--- NOTE | 2025-08-27 13:48 | W.DCSUMMARY ---
Discharge Summary
Discharge Data
Date of Admission: 08/26/25
Date of Discharge: 08/28/25
-
Pending Results: Yes
Additional Pending Results:
EGD pathology
Hospital Course
30yo F with PMHx of bowel perforation in 2015 with subtotal colectomy, stoma in 2018 then x5 due to necrosis and dysfunction, HX of short bowel syndrome, high output ostomy on weekly IVF, chronic anemia s/p recent capsule endoscopy, planned for EGD
at the end of Aug in [facility], where is her GI care, GERD, Hx of PUD came with 6 weeks of worsening LUQ abd pain to the point that she could not tolerate it. Found worsening chronic anemia. s/p EGD on 08/26/25 with suspicion for eosinophilic
esophagitis, non-bleeding Miguel class III gastric ulcer. Advised to keep existent GI appt as outpatient ad increased PPI. 3L Ostomy output overnight - replete NS bolus. H&H stable. Medically appropriate tpo d/c home. PAtient to cont previously
arranged home IVF. H&H recommended on 08/30/25 - patient has standing orders
I have spent at least 58min reviewing chart, test results, communication woith consultants and providing direct patient care
Patient was managed for:
#Chronic anemia
#PUD
#LUQ abd pain
#Hepatic cyst
#Hyponatremia
Discharge Plan
-
Patient Disposition: Home (Routine Discharge)
Discharge Diagnosis/Procedures: abdominal pain
Diet: Low Residue
Activity: As tolerated
Activity Restrictions/Additional Instructions:
Schedule appointments with established forensic science technician and hematologists [facility] will call with results of pathology taken during EGD
Referrals:
PRIVATE,PHYSICIAN [Family Provider, Internal Medicine]
Prescriptions:
New
hydromorphone [Dilaudid] 2 mg tablet
2 mg PO Q6H PRN (Reason: breakthrough pain) Qty: 12 0RF
Continued
sumatriptan succinate [Imitrex] 100 mg Tablet
100 mg PO DAILYPRN PRN (Reason: migraines)
promethazine 12.5 mg Tablet
25 mg PO Q6HPRN PRN (Reason: nausea)
tramadol 50 mg Tablet
50 mg PO Q6HPRN PRN (Reason: breakthrough pain)
sodium chloride 0.9 % (flush) Syringe
10 ml IV HS
Patient Comments:
01/05/25: for PICC care
simethicone 80 mg Tablet,Chewable
80 mg PO DAILYPRN PRN (Reason: gas)
cyclobenzaprine 10 mg Tablet
10 mg PO HS PRN (Reason: prn)
sulfasalazine 500 mg Tablet
1,000 mg PO BID
Changed
dexlansoprazole 30 mg Capsule,Biphase Delayed Releas
30 mg PO BID Qty: 0 0RF
Discharge Date and Time
Print Language: SLOVENIAN
--- NOTE | 2025-08-27 13:55 | W.PN.GI.CBS2 ---
Today's Communication / Plan
-
ok to d/c
Assessment / Plan
-
30yoF PMH psoriatic arthritis, PCOS, extensive GI hx including PUD 2019, subtotal colectomy 2014, sigmoid volvulus and complete colectomy 2017, ileostomy prolapse, revision 2018 and 2019, high output from ileostomy presenting with acute on
subacute/chronic abdominal pain and low Hgb.
AFVSS. Pt is hemodynamically stable with Hg 8.5 s/p 1 unit. Pt describes radiating LUQ pain similar to prior episodes of ulcers that get worse with eating. She also has throat pain and nausea with prior hx of possible esophageal plaques. She has an
extensive GI hx. Last EGD performed 10/2023. Capsule endoscopy this past week with plan of EGD in September outpt. Subacute symptoms of normocytic anemia with progressive abdominal pain no longer manageable on home pain regimen. Pt stated she is
unable to wait until to September due to the increased severity of symptoms at given time of abdominal pain, nausea, dry heaving. Symptoms could be due to recurrence of PUD; no recent triggers, denying alcohol, tobacco, NSAIDs, steroid use. Plan for
EGD to further investigate acute worsening of abdominal pain and possibly cause of low Hg.
Her EGD yesterday showed mucosal changes suspicious for possible EoE s/p bx, small non-bleeding ulcer in proximal body s/p bx, and retained food. Duo was unremarkable. She is feeling better today. Tolerating diet. Hgb remains stable. At this
point, ok to d/c home with f/u with [facility]. Can increase her PPI to BID for now. Path f/u.
Total Time Spent with Patient (in minutes): 35
Subjective
Subjective
Date of Service: August 27, 2025
Feeling better. Hgb stable.
Objective
Data Reviewed
Laboratory Data:
Laboratory Results
08/25/25 19:28
Laboratory Results
Total Bilirubin 0.5 mg/dl (0.2-1.3) 08/25/25 19:28
AST 23 U/L (14-36) 08/25/25 19:28
ALT 31 U/L (0-35) 08/25/25 19:28
Alkaline Phosphatase 35 U/L (38-126) L 08/25/25 19:28
Lipase 97 U/L (23-300) 08/25/25 19:28
Vital Signs and I&O:
Vital Signs
Temp Pulse Resp BP Pulse Ox
98.5 F 93 16 98/55 100
08/27/25 07:00 08/27/25 07:00 08/27/25 07:00 08/27/25 07:00 08/27/25 07:00
I&O
08/26/25 08/27/25 08/28/25
06:59 06:59 06:59
Intake Total 490 / 490 960 / 1440 480 / 480
Balance 490 / 490 960 / 1440 480 / 480
[2025-08-27 14:10] LABS: Hematocrit 20.4 % (37.0-47.0); Hemoglobin 6.5 g/dL (12.0-16.0)
[2025-08-27 16:49] VITALS: BP 107/63
[2025-08-27 17:15] VITALS: BP 106/60
[2025-08-27 19:27] VITALS: BP 108/63
[2025-08-27] MEDS: NSS (PRESERVATIVE FREE) 8 ML IV (21:32)
[2025-08-27] MEDS: PEPCID 20 MG IV (21:33)
[2025-08-27 23:00] VITALS: BP 105/62
[2025-08-28] MEDS: DILAUDID 1 MG IV ×3 (05:23→11:54)
[2025-08-28 05:33] LABS: Hematocrit 22.8 % (37.0-47.0); Hemoglobin 7.3 g/dL (12.0-16.0)
[2025-08-28 07:50] VITALS: BP 122/70
[2025-08-28] MEDS: AZULFIDINE 1000 MG PO (07:55)
[2025-08-28] MEDS: NSS (PRESERVATIVE FREE) 10 ML IV (07:55)
[2025-08-28] MEDS: PROTONIX IV 40 MG IV (07:55)
--- NOTE | 2025-08-28 09:30 | W.PN.HOSP.TC ---
Addendum entered and electronically signed by Jesus Escalona MD 08/28/25 11:05:
patient may resume previous [facility]
Original Note:
Today's Communication/Plan
-
DC
Assessment / Plan
Assessment / Plan
30yo F with PMHx of bowel perforation in 2015 with subtotal colectomy, stoma in 2018 then x5 due to necrosis and dysfunction, HX of short bowel syndrome, high output ostomy on weekly IVF, chronic anemia s/p recent capsule endoscopy, planned for EGD
at the end of Aug in [facility], where is her GI care, GERD, Hx of PUD came with 6 weeks of worsening LUQ abd pain to the point that she could not tolerate it. Found worsening chronic anemia. s/p EGD on 08/26/25 with suspicion for eosinophilic
esophagitis, non-bleeding Miguel class III gastric ulcer. Advised to keep existent GI appt as outpatient ad increased PPI. 3L Ostomy output overnight - replete NS bolus. Had 1 more unit PRBC overnight on 08/27/25 with appropriate Hgb elevation.
Already has standing orders for H&H with established [facility]. Recommended to have blood work done on 07/30/25. Medically stable for d/c as agreed with GI
A/P:
#Chronic anemia
#PUD
extensive w/u in [place] by [facility] and GI, recent capsule endoscopy, pending results
Unclear cause
s/p 1 unit PRBC this admission, had total of 7 units of blood transfusion over past 6 weeks
#LUQ abd pain
Lipase and LFT WNL
CT abd: mild diffuse small bowel distension, mild gall bladder and urinary bladder distension
GI consult
Pain mgmt: discussed careful consideration for opioid analgetics, since PMHx of SBO 2/2 imodium
food hels with pain - advance as per GI
#Hepatic cyst
no follow up advised
#Hyponatremia
2/2 high output ostomy
IVF PRN
already arranged at home
DVT ppx SCDs
Full code
I have spent at least 36min reviewing chart, test results, communication woith consultants and providing direct patient care
Anticipated Discharge: Today
Subjective/Interval History
-
Date of Service: August 28, 2025
Objective Data
-
Labs:
Laboratory Results
08/28/25
05:01
Hgb 7.3 L
Hct 22.8 L
Vital Signs:
Vital Signs
Temp Pulse Resp BP Pulse Ox
98.4 F 94 16 122/70 99
08/28/25 07:50 08/28/25 07:50 08/28/25 07:50 08/28/25 07:50 08/28/25 07:50
I&O
08/27/25 08/28/25 08/29/25
06:59 06:59 06:59
Intake Total 960 / 1440 5350 / 5350
Output Total 1500 / 1500
Balance 960 / 1440 3850 / 3850
Review of Systems
-
History Source: Patient
All other systems: Reviewed and negative
Physical Exam
-
General: No Apparent Distress
Neuro: Awake, Alert, Oriented and AO x 3
Psych: Calm
--- NOTE | 2025-08-28 10:25 | CM ---
Addendum entered by Anila Fernandez 08/28/25 11:42:
food beverage manager spoke with Sharee at [facility], and faxed over resumption of care. to Sharee at [facility] [phone]
Original Note:
food beverage manager reviewed patient's chart and plan is to home today, per patient she gets infusion from [facility] at home, caser reached out to [facility], and left a message with the answering service.
Plan; Home today.
[2025-08-28 11:56] VITALS: BP 116/67
== END 2025-08-28 12:20 | disposition home or self-care (01) | DRG 384 ==
LOC: 4 WEST ACU 01:37
PROVIDERS: Radiology Diagnostic Radiology; ADMITTING PHYSICIAN Internal Medicine; ATTENDING PHYSICIAN Internal Medicine; CONSULT PHYSICIAN Internal Medicine Gastroenterology; EMERGENCY PHYSICIAN Emergency Medicine
PROC: 30233N1 Transfusion of Nonautologous Red Blood Cells into Peripheral Vein, Percutaneous Approach (ICD-10-PCS; 2025-08-25)
PROC: 02HV33Z Insertion of Infusion Device into Superior Vena Cava, Percutaneous Approach (ICD-10-PCS; 2025-08-25)
PROC: 0DB68ZX Excision of Stomach, Via Natural or Artificial Opening Endoscopic, Diagnostic (ICD-10-PCS; 2025-08-26)
PROC: 0DB58ZX Excision of Esophagus, Via Natural or Artificial Opening Endoscopic, Diagnostic (ICD-10-PCS; 2025-08-26)
DX: K25.9 Gastric ulcer, unspecified as acute or chronic, without hemorrhage or perforation (principal); E87.1 Hypo-osmolality and hyponatremia; K76.89 Other specified diseases of liver; K20.0 Eosinophilic esophagitis
CPT/HCPCS: 36430; 71045; 74177; 80053; 81003; 83690; 84703; 85014; 85018; 85025; 86850; 86900; 86901; 86920; 88305; 88312; 93005; 96372; 96374; 96375; 96376; 99285; P9016; Q9967